=== PATIENT | male | born 1935 | race Asian ===

== ENCOUNTER 2017-08-29 15:10 | Inpatient (IN) | payer MEDICARE, MEDICAID ==
[~2017-08-29] VITALS: Ht 160 cm; Wt 65.8 kg
[~2017-08-29 15:10] MED LIST: APRODINE TABLE1 EACH PO; ASPIR 8181 MG ORAL; DIOVAN160 MG ORAL; FERROUS SULFAT325 MG ORAL; FOLIC ACID1 MG ORAL; LIPITOR10 MG ORAL; PROTONIX40 MG ORAL; RAPAFLO8 MG ORAL
--- NOTE | 2017-08-29 15:20 | Emergency Room Report ---
History of Present Illness General Chief Complaint: To Be Triaged Source: Patient Present Illness HPI 82-year-old male history of hypertension, COPD, history of stroke 10 years ago on aspirin and Plavix, presenting with left lower leg weakness for 2 days. Patient states the symptoms occurred gradually. And then yesterday today he has not able to walk secondary to leg weakness. Denies any headache, blurry vision, altered mental status, neck pain. No trauma. No fall. No back pain Allergies: Coded Allergies: NO KNOWN ALLERGIES (Unverified Allergy, Unknown, 05/08/15) Patient History Past Medical History: see triage record Past Surgical History: none Pertinent Family History: none Reviewed Nursing Documentation: PMH: Agreed, PSxH: Agreed Nursing Documentation-PMH Hx Cardiac Problems: Yes Hx Hypertension: Yes Hx Diabetes: Yes Hx Cancer: No Hx Gastrointestinal Problems: No Hx Neurological Problems: Yes Hx Cerebrovascular Accident: Yes - 2004 Review of Systems All Other Systems: negative except mentioned in HPI Physical Exam Sp02 EP Interpretation: reviewed, normal General Appearance: normal inspection, well appearing, no apparent distress, alert, GCS 15, non-toxic Head: normocephalic, atraumatic Eyes: bilateral eye normal inspection, bilateral eye PERRL, bilateral eye EOMI ENT: normal ENT inspection, normal pharynx, normal voice, moist mucus membranes Neck: normal inspection, full range of motion, supple Respiratory: normal inspection, lungs clear, normal breath sounds, no respiratory distress, no retraction, no wheezing, speaking full sentences, chest symmetrical Cardiovascular #1: normal inspection, regular rate, rhythm, no edema, normal capillary refill Cardiovascular #2: 2+ radial (R), 2+ radial (L) Gastrointestinal: normal inspection, non tender, soft, non-distended, no guarding Genitourinary: no CVA tenderness Musculoskeletal: normal inspection, back normal, normal range of motion, non- tender Neurologic: oriented x3, other - Left lower extremity with motor strength 3/5, all other extremities motor strength 5 out of 5. Sensory is intact. No pronator drift, finger to nose normal Psychiatric: normal inspection, judgement/insight normal, memory normal Skin: normal inspection, normal color, no rash, warm/dry, well hydrated, normal turgor Medical Decision Making Diagnostic Impression: Primary Impression: CVA (cerebral vascular accident) Additional Impressions: CKD (chronic kidney disease) Left leg weakness ER Course 82-year-old male with 2 days of left lower extremity weakness DDX: Stroke versus TIA versus intracranial bleed versus metabolic Plan: Obtain labs, ua, EKG, CXR CT head, Accu-Chek ER course: Patient has been monitored during ED stay, HD stable still w LLE weakness CT head neg will likely require MRI inpatient Disposition: Patient is to be admitted to telemetry D/W hospitalist Dr Liu Please note that this Emergency Department Report was dictated using [employer] room supervisor technology software, occasionally this can lead to erroneous entry secondary to interpretation by the dictation equipment. EKG Diagnostic Results EP Interpretation: Yes Rate: normal Rhythm: NSR ST Segments: No acute changes ASA given to patient: No Rhythm Strip EP Interpretation: Yes Rate: 84 Rhythm: NSR, no PVCs, no ectopy Chest X-ray CXR: Ordered: Yes 1 view Indication: Pain EP interpretation: Yes Interpretation: No consolidation, no effusion, no PTX, no acute cardiopulmonary disease Impression: No acute disease Electronically signed by Pedro Thomas MD Laboratory Tests Test 08/29/17 15:18 08/29/17 16:44 White Blood Count 7.7 K/UL (4.8-10.8) Red Blood Count 4.56 M/UL (4.70-6.10) L Hemoglobin 14.4 G/DL (14.2-18.0) Hematocrit 43.2 % (42.0-52.0) Mean Corpuscular Volume 95 FL (80-99) Mean Corpuscular Hemoglobin 31.5 PG (27.0-31.0) H Mean Corpuscular Hemoglobin Concent 33.3 G/DL (32.0-36.0) Red Cell Distribution Width 11.2 % (11.6-14.8) L Platelet Count 222 K/UL (150-450) Mean Platelet Volume 7.2 FL (6.5-10.1) Neutrophils (%) (Auto) 74.7 % (45.0-75.0) Lymphocytes (%) (Auto) 15.7 % (20.0-45.0) L Monocytes (%) (Auto) 6.5 % (1.0-10.0) Eosinophils (%) (Auto) 2.5 % (0.0-3.0) Basophils (%) (Auto) 0.7 % (0.0-2.0) Prothrombin Time 10.4 SEC (9.30-11.50) Prothrombin Time INR 1.0 (0.9-1.1) PTT 28 SEC (23-33) Sodium Level 143 MMOL/L (136-145) Potassium Level 3.6 MMOL/L (3.5-5.1) Chloride Level 106 MMOL/L (98-107) Carbon Dioxide Level 28 MMOL/L (21-32) Anion Gap 9 mmol/L (5-15) Blood Urea Nitrogen 29 mg/dL (7-18) H Creatinine 2.5 MG/DL (0.55-1.30) H Estimate Glomerular Filtration Rate mL/min (>60) Glucose Level 140 MG/DL (74-106) H Calcium Level 9.2 MG/DL (8.5-10.1) Total Bilirubin 0.4 MG/DL (0.2-1.0) Aspartate Amino Transferase (AST) 26 U/L (15-37) Alanine Aminotransferase (ALT) 13 U/L (12-78) Alkaline Phosphatase 59 U/L (46-116) Troponin I 0.013 ng/mL (0.000-0.056) Pro-B-Type Natriuretic Peptide 438 pg/mL (0-125) H Total Protein 7.1 G/DL (6.4-8.2) Albumin 3.6 G/DL (3.4-5.0) Globulin 3.5 g/dL Albumin/Globulin Ratio 1.0 (1.0-2.7) Urine Color Pending Urine Appearance Pending Urine pH Pending Urine Specific [place] Pending Urine Protein Pending Urine Glucose (UA) Pending Urine Ketones Pending Urine Occult Blood Pending Urine Nitrite Pending Urine Bilirubin Pending Urine Urobilinogen Pending Urine Leukocyte Esterase Pending CT/MRI/US Diagnostic Results CT/MRI/US Diagnostic Results : Imaging Test Ordered: CT Head Impression Impression: Chronic and age-related changes, as described Old bilateral lacunar infarcts, as described Negative for acute intracranial bleed or mass effect Sinus and mastoid disease Disposition: ADMITTED INPATIENT Condition: Pedro Coreas M.D. Aug 29, 2017 15:20
[2017-08-29 15:51] LABS: BASOPHILS % (AUTO) 0.7 % (0.0-2.0); EOSINOPHILS % (AUTO) 2.5 % (0.0-3.0); HEMATOCRIT 43.2 % (42.0-52.0); HEMOGLOBIN 14.4 G/DL (14.2-18.0); LYMPHOCYTES % (AUTO) 15.7 % (20.0-45.0); MEAN CORPUSCULAR VOLUME 95 FL (80-99); MONOCYTES % (AUTO) 6.5 % (1.0-10.0); NEUTROPHILS % (AUTO) 74.7 % (45.0-75.0); PLATELET COUNT 222 K/UL (150-450); RED BLOOD COUNT 4.56 M/UL (4.70-6.10); RED CELL DISTRIBUTION WIDTH 11.2 % (11.6-14.8); WHITE BLOOD COUNT 7.7 K/UL (4.8-10.8)
[2017-08-29 15:56] LABS: ANION GAP 9 mmol/L (5-15); BLOOD UREA NITROGEN 29 mg/dL (7-18); CALCIUM 9.2 MG/DL (8.5-10.1); CARBON DIOXIDE 28 MMOL/L (21-32); CHLORIDE 106 MMOL/L (98-107); CREATININE 2.5 MG/DL (0.55-1.30); POTASSIUM 3.6 MMOL/L (3.5-5.1); SODIUM 143 MMOL/L (136-145)
[2017-08-29 16:07] LABS: ALANINE AMINOTRANSFERASE 13 U/L (12-78); ALBUMIN 3.6 G/DL (3.4-5.0); ALKALINE PHOSPHATASE 59 U/L (46-116); ASPARTATE AMINO TRANSFERASE 26 U/L (15-37); BILIRUBIN,TOTAL 0.4 MG/DL (0.2-1.0)
--- NOTE | 2017-08-29 16:13 | Diagnostic Imaging Report ---
Indications: Syncope 3 times this morning, left leg numbness, history of stroke Technique: Spiral acquisitions obtained through the brain. Angled axial and coronal 5 x 5 mm slices were reconstructed. Total dose length product 1453.5 mGycm. CTDI vol(s) 70.38 mGy. Dose reduction achieved using automated exposure control Comparison: None. Findings: There is age-related enlargement of the ventricles and extra-axial CSF spaces. There is considerable periventricular deep white matter low-attenuation, compatible with chronic ischemic change. There is an old lacunar infarct extending from the genu of the right internal capsule into the bravo radiata on the right. Small lacunar infarct is also seen in the genu of the left internal capsule. Normal donahue-white differentiation otherwise. No acute intracranial hemorrhage or edema. No mass effect or midline shift. There is ethmoid sinus disease bilaterally. Visualized portions of the orbits appear unremarkable. 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 Impression: Chronic and age-related changes, as described Old bilateral lacunar infarcts, as described Negative for acute intracranial bleed or mass effect Sinus and mastoid disease The CT scanner at [facility] is accredited by the [place] [employer] and the scans are performed using protocols designed to limit radiation exposure to as low as reasonably achievable to attain images of sufficient resolution adequate for diagnostic evaluation.
--- NOTE | 2017-08-29 16:42 | Diagnostic Imaging Report ---
Indication: Chest pain Technique: One view of the chest Comparison: 10/08/2015 Findings: The lungs and pleural spaces are clear. The heart is borderline enlarged. The aorta is ectatic. There is minimal stable scarring of the left lateral lung base Impression: No acute process
[2017-08-29 17:12] LABS: APPEARANCE,URINE CLEAR; BILIRUBIN, URINE NEGATIVE (NEGATIVE); COLOR,URINE PALE YELLOW; GLUCOSE, URINE (UA) 1+ (NEGATIVE); KETONES,URINE NEGATIVE (NEGATIVE); LEUKOCYTE ESTERASE ,URINE NEGATIVE (NEGATIVE); NITRITE,URINE NEGATIVE (NEGATIVE); PH,URINE 6 (4.5-8.0); PROTEIN,URINE 2+ (NEGATIVE); UROBILINOGEN,URINE NORMAL MG/DL (0.0-1.0)
[2017-08-29] MEDS ORDERED: Mylanta II UD 30ml ORAL PRN (17:15)
[2017-08-29] MEDS ORDERED: Albuterol/Ipratropium 3ml neb HHN PRN (17:15)
[2017-08-29] MEDS ORDERED: LORazepam Inj 2mg/ml 1ml IV PRN (17:15)
[2017-08-29] MEDS ORDERED: Nitroglycerin Subl 0.4mg tab SL PRN (17:15)
[2017-08-29] MEDS ORDERED: Morphine Sulfate 2mg/ml Inj IVP PRN (17:15)
[2017-08-29 19:22] VITALS: BP 140/71
[2017-08-29] MEDS: NovoLOG Insulin Flexpen SUBQ SCH (21:00)
[2017-08-29] MEDS ORDERED: Miralax 17gm pkt ORAL PRN (21:00)
[2017-08-29] MEDS: Heparin 5000 units/ml inj SUBQ SCH (21:07)
[2017-08-29 21:45] VITALS: BP 150/90
[2017-08-29 21:58] LABS: APPEARANCE,URINE CLEAR; BILIRUBIN, URINE NEGATIVE (NEGATIVE); COLOR,URINE PALE YELLOW; GLUCOSE, URINE (UA) 1+ (NEGATIVE); KETONES,URINE NEGATIVE (NEGATIVE); LEUKOCYTE ESTERASE ,URINE NEGATIVE (NEGATIVE); NITRITE,URINE NEGATIVE (NEGATIVE); PH,URINE 6.5 (4.5-8.0); PROTEIN,URINE 2+ (NEGATIVE); UROBILINOGEN,URINE NORMAL MG/DL (0.0-1.0)
[2017-08-30] VITALS: BP 126/78
[2017-08-30 04:00] VITALS: BP 125/67
[2017-08-30] MEDS: NovoLOG Insulin Flexpen SUBQ SCH ×4 (06:30→20:42)
[2017-08-30 08:00] VITALS: BP 140/87
[2017-08-30 08:29] LABS: BASOPHILS % (AUTO) 0.9 % (0.0-2.0); EOSINOPHILS % (AUTO) 4.7 % (0.0-3.0); HEMATOCRIT 41.6 % (42.0-52.0); HEMOGLOBIN 14.1 G/DL (14.2-18.0); LYMPHOCYTES % (AUTO) 21.6 % (20.0-45.0); MEAN CORPUSCULAR VOLUME 94 FL (80-99); MONOCYTES % (AUTO) 7.3 % (1.0-10.0); NEUTROPHILS % (AUTO) 65.6 % (45.0-75.0); PLATELET COUNT 197 K/UL (150-450); RED BLOOD COUNT 4.41 M/UL (4.70-6.10); RED CELL DISTRIBUTION WIDTH 11.3 % (11.6-14.8); WHITE BLOOD COUNT 6.2 K/UL (4.8-10.8)
[2017-08-30 09:34] LABS: ALANINE AMINOTRANSFERASE 13 U/L (12-78); ALBUMIN 3.2 G/DL (3.4-5.0); ALKALINE PHOSPHATASE 45 U/L (46-116); ANION GAP 8 mmol/L (5-15); ASPARTATE AMINO TRANSFERASE 26 U/L (15-37); BILIRUBIN,TOTAL 0.6 MG/DL (0.2-1.0); BLOOD UREA NITROGEN 25 mg/dL (7-18); CALCIUM 8.9 MG/DL (8.5-10.1); CARBON DIOXIDE 25 MMOL/L (21-32); CHLORIDE 105 MMOL/L (98-107); CHOLESTEROL 121 MG/DL (< 200); CREATININE 2.3 MG/DL (0.55-1.30); HDL CHOLESTEROL 36 MG/DL (40-60); SODIUM 138 MMOL/L (136-145); TRIGLYCERIDES 76 MG/DL (30-150)
--- NOTE | 2017-08-30 09:46 | History and Physical ---
History of Present Illness General Date patient seen: Aug 30, 2017 Reason for Hospitalization: Stroke Symptoms Present Illness HPI 82-year-old male with PMHx of of hypertension, COPD, history of stroke 10 years ago on aspirin and Plavix, presenting with left lower leg weakness for 2 days. Patient states the symptoms occurred gradually. Today he has not able to walk secondary to leg weakness. Denies any headache, blurry vision, altered mental status, neck pain. No trauma. No fall. No back pain. Pt is admitted to telemetry for acute CVA. Allergies: Coded Allergies: NO KNOWN ALLERGIES (Unverified Allergy, Unknown, 05/08/15) Medication History Scheduled Atorvastatin Calcium* (Lipitor*), 10 MG ORAL BEDTIME, (Reported) Ferrous Sulfate* (Ferrous Sulfate*), 325 MG ORAL TWICE A DAY, (Reported) Folic Acid* (Folic Acid*), 1 MG ORAL DAILY, (Reported) P-Ephed Hcl/Triprolidine Hcl (Aprodine Tablet), 1 EACH PO THREE TIMES A DAY, ( Reported) Pantoprazole* (Protonix*), 40 MG ORAL DAILY, (Reported) Silodosin (Rapaflo), 8 MG ORAL DAILY, (Reported) Valsartan (Diovan), 160 MG ORAL DAILY, (Reported) Patient History Healthcare decision maker N Resuscitation status Full Code Advanced Directive on File Past Medical/Surgical History Past Medical/Surgical History: (1) CVA (cerebral vascular accident) (2) HTN (hypertension) Review of Systems All Other Systems: negative except mentioned in HPI Physical Exam General Appearance: WD/WN Lines, tubes and drains: peripheral HEENT: normocephalic, atraumatic Neck: non-tender, normal alignment Respiratory/Chest: chest wall non-tender, lungs clear Breasts: no masses Cardiovascular/Chest: normal peripheral pulses Abdomen: normal bowel sounds, non tender Genitourinary/Rectal: normal genital exam Extremities: normal range of motion Skin Exam: normal pigmentation Last 24 Hour Vital Signs Date Time Temp Pulse Resp B/P (MAP) Pulse Ox O2 Delivery O2 Flow Rate FiO2 08/30/17 04:00 97.7 84 20 125/67 95 Nasal Cannula 2.0 97.7 08/30/17 04:00 66 08/30/17 00:00 69 08/30/17 00:00 97.9 71 20 126/78 96 Nasal Cannula 2.0 97.9 08/29/17 21:45 98.2 69 22 150/90 98 Nasal Cannula 2.0 98.2 08/29/17 19:52 98.0 73 21 140/71 95 Simple Mask 2.0 98.0 08/29/17 19:22 98.0 73 21 140/71 95 Simple Mask 2.0 98.0 08/29/17 15:15 98.5 88 20 150/82 96 Room Air 98.4 Intake and Output 08/29/17 08/30/17 19:00 07:00 Intake Total 0 ml 0 ml Output Total 200 ml Balance 0 ml -200 ml Intake Oral 0 ml 0 ml Output Urine Total 200 ml # Voids 1 Laboratory Tests Test 08/29/17 15:18 08/29/17 16:44 08/29/17 21:20 08/30/17 07:20 White Blood Count 7.7 K/UL (4.8-10.8) 6.2 K/UL (4.8-10.8) Red Blood Count 4.56 M/UL (4.70-6.10) L 4.41 M/UL (4.70-6.10) L Hemoglobin 14.4 G/DL (14.2-18.0) 14.1 G/DL (14.2-18.0) L Hematocrit 43.2 % (42.0-52.0) 41.6 % (42.0-52.0) L Mean Corpuscular Volume 95 FL (80-99) 94 FL (80-99) Mean Corpuscular Hemoglobin 31.5 PG (27.0-31.0) H 32.0 PG (27.0-31.0) H Mean Corpuscular Hemoglobin Concent 33.3 G/DL (32.0-36.0) 33.9 G/DL (32.0-36.0) Red Cell Distribution Width 11.2 % (11.6-14.8) L 11.3 % (11.6-14.8) L Platelet Count 222 K/UL (150-450) 197 K/UL (150-450) Mean Platelet Volume 7.2 FL (6.5-10.1) 6.8 FL (6.5-10.1) Neutrophils (%) (Auto) 74.7 % (45.0-75.0) 65.6 % (45.0-75.0) Lymphocytes (%) (Auto) 15.7 % (20.0-45.0) L 21.6 % (20.0-45.0) Monocytes (%) (Auto) 6.5 % (1.0-10.0) 7.3 % (1.0-10.0) Eosinophils (%) (Auto) 2.5 % (0.0-3.0) 4.7 % (0.0-3.0) H Basophils (%) (Auto) 0.7 % (0.0-2.0) 0.9 % (0.0-2.0) Prothrombin Time 10.4 SEC (9.30-11.50) 10.7 SEC (9.30-11.50) Prothromb Time International Ratio 1.0 (0.9-1.1) 1.0 (0.9-1.1) Activated Partial Thromboplast Time 28 SEC (23-33) 31 SEC (23-33) Sodium Level 143 MMOL/L (136-145) 138 MMOL/L (136-145) Potassium Level 3.6 MMOL/L (3.5-5.1) 4.0 MMOL/L (3.5-5.1) Chloride Level 106 MMOL/L (98-107) 105 MMOL/L (98-107) Carbon Dioxide Level 28 MMOL/L (21-32) 25 MMOL/L (21-32) Anion Gap 9 mmol/L (5-15) 8 mmol/L (5-15) Blood Urea Nitrogen 29 mg/dL (7-18) H 25 mg/dL (7-18) H Creatinine 2.5 MG/DL (0.55-1.30) H 2.3 MG/DL (0.55-1.30) H Estimat Glomerular Filtration Rate mL/min (>60) mL/min (>60) Glucose Level 140 MG/DL (74-106) H 117 MG/DL (74-106) H Calcium Level 9.2 MG/DL (8.5-10.1) 8.9 MG/DL (8.5-10.1) Total Bilirubin 0.4 MG/DL (0.2-1.0) 0.6 MG/DL (0.2-1.0) Aspartate Amino Transf (AST/SGOT) 26 U/L (15-37) 26 U/L (15-37) Alanine Aminotransferase (ALT/SGPT) 13 U/L (12-78) 13 U/L (12-78) Alkaline Phosphatase 59 U/L (46-116) 45 U/L (46-116) L Troponin I 0.013 ng/mL (0.000-0.056) Pro-B-Type Natriuretic Peptide 438 pg/mL (0-125) H Total Protein 7.1 G/DL (6.4-8.2) 6.4 G/DL (6.4-8.2) Albumin 3.6 G/DL (3.4-5.0) 3.2 G/DL (3.4-5.0) L Globulin 3.5 g/dL 3.2 g/dL Albumin/Globulin Ratio 1.0 (1.0-2.7) 1.0 (1.0-2.7) Urine Color Pale yellow Pale yellow Urine Appearance Clear Clear Urine pH 6 (4.5-8.0) 6.5 (4.5-8.0) Urine Specific [place] 1.015 (1.005-1.035) 1.010 (1.005-1.035) Urine Protein 2+ (NEGATIVE) H 2+ (NEGATIVE) H Urine Glucose (UA) 1+ (NEGATIVE) H 1+ (NEGATIVE) H Urine Ketones Negative (NEGATIVE) Negative (NEGATIVE) Urine Occult Blood 1+ (NEGATIVE) H Negative (NEGATIVE) Urine Nitrite Negative (NEGATIVE) Negative (NEGATIVE) Urine Bilirubin Negative (NEGATIVE) Negative (NEGATIVE) Urine Urobilinogen Normal MG/DL (0.0-1.0) Normal MG/DL (0.0-1.0) Urine Leukocyte Esterase Negative (NEGATIVE) Negative (NEGATIVE) Urine RBC 2-4 /HPF (0 - 0) H 0-2 /HPF (0 - 0) H Urine WBC 0-2 /HPF (0 - 0) 0-2 /HPF (0 - 0) Urine Squamous Epithelial Cells None /LPF (NONE/OCC) None /LPF (NONE/OCC) Urine Bacteria Few /HPF (NONE) Few /HPF (NONE) Urine Eosinophils None seen Urine Random Sodium 173 mmol/L (20-110) H Urine Potassium Timed 22 mmol/L (12-62) Triglycerides Level 76 MG/DL (30-150) Cholesterol Level 121 MG/DL (< 200) LDL Cholesterol 77 mg/dL (<100) HDL Cholesterol 36 MG/DL (40-60) L Cholesterol/HDL Ratio 3.4 (3.3-4.4) Thyroid Stimulating Hormone (TSH) Pending Height (Feet): 5 Height (Inches): 3.00 Weight (Pounds): 145 Medications Current Medications Medications (Trade) Dose Ordered Sig/Pete Route PRN Reason Start Time Stop Time Status Last Admin Dose Admin Acetaminophen (Tylenol) 650 mg Q4H PRN ORAL T>100.5 08/29/17 17:15 09/28/17 17:14 Al Hydroxide/Mg Hydroxide (Mylanta II) 30 ml Q6H PRN ORAL dyspepsia 08/29/17 17:15 09/28/17 17:14 Albuterol/ Ipratropium (Albuterol/ Ipratropium) 3 ml Q4H PRN HHN Shortness of Breath 08/29/17 17:15 09/03/17 17:14 Atorvastatin Calcium (Lipitor) 10 mg BEDTIME ORAL 08/29/17 21:00 09/28/17 20:59 08/29/17 21:06 Clonidine HCl (Catapres Tab) 0.1 mg Q4H PRN ORAL SBP > 160mmHg 08/29/17 17:15 09/28/17 17:14 Dextrose (Dextrose 50%) STAT PRN IV Hypoglycemia 08/29/17 17:30 09/28/17 17:29 Heparin Sodium (Porcine) (Heparin 5000 units/ml) 5,000 units EVERY 12 HOURS SUBQ 08/29/17 21:00 09/28/17 20:59 08/29/17 21:07 Insulin Aspart (NovoLOG) BEFORE MEALS AND HS SUBQ 08/29/17 21:00 09/28/17 20:59 Lorazepam (Ativan 2mg/ml 1ml) 0.5 mg Q4H PRN IV For Anxiety 08/29/17 17:15 09/05/17 17:14 Morphine Sulfate (Morphine Sulfate) 1 mg Q4H PRN IVP Severe Pain (Pain Scale 7-10) 08/29/17 17:15 09/05/17 17:14 Nitroglycerin (Ntg) 0.4 mg Q5M X 3 DOSES PRN SL Prn Chest Pain 08/29/17 17:15 09/28/17 17:14 Ondansetron HCl (Zofran) 4 mg Q6H PRN IVP Nausea & Vomiting 08/29/17 17:15 09/28/17 17:14 Polyethylene Glycol (Miralax) 17 gm HSPRN PRN ORAL Constipation 08/29/17 21:00 09/28/17 20:59 Sodium Chloride 1,000 ml @ 75 mls/hr [id number] IV 08/29/17 18:30 09/28/17 18:29 08/29/17 21:06 Temazepam (Restoril) 15 mg HSPRN PRN ORAL Insomnia 08/29/17 21:00 09/05/17 20:59 Assessment/Plan Problem List: (1) Acute encephalopathy ICD Codes: G93.40 - Encephalopathy, unspecified SNOMED: 12687721, 763947284 (2) CVA (cerebral vascular accident) ICD Codes: I63.9 - Cerebral infarction, unspecified SNOMED: 252527458 (3) HTN (hypertension) ICD Codes: I10 - Essential (primary) hypertension SNOMED: 45208035 (4) CKD (chronic kidney disease) ICD Codes: N18.9 - Chronic kidney disease, unspecified SNOMED: 250582048 Assessment/Plan npo iv fluids swallow evaluation Neuro evaluation monitor BP symptomatic treatment DANK SANCHEZ Aug 30, 2017 09:46
[2017-08-30] MEDS: Heparin 5000 units/ml inj SUBQ SCH ×2 (10:32→20:42)
[2017-08-30 12:00] VITALS: BP 144/72
--- NOTE | 2017-08-30 12:51 | Neurology Progress Note ---
Objective Physical Exam Last Vital Signs Date Time Temp Pulse Resp B/P (MAP) Pulse Ox O2 Delivery O2 Flow Rate FiO2 08/30/17 04:00 97.7 84 20 125/67 95 Nasal Cannula 2.0 97.7 Laboratory Tests Test 08/29/17 15:18 08/29/17 16:44 08/29/17 21:20 08/30/17 07:20 White Blood Count 7.7 K/UL (4.8-10.8) 6.2 K/UL (4.8-10.8) Red Blood Count 4.56 M/UL (4.70-6.10) L 4.41 M/UL (4.70-6.10) L Hemoglobin 14.4 G/DL (14.2-18.0) 14.1 G/DL (14.2-18.0) L Hematocrit 43.2 % (42.0-52.0) 41.6 % (42.0-52.0) L Mean Corpuscular Volume 95 FL (80-99) 94 FL (80-99) Mean Corpuscular Hemoglobin 31.5 PG (27.0-31.0) H 32.0 PG (27.0-31.0) H Mean Corpuscular Hemoglobin Concent 33.3 G/DL (32.0-36.0) 33.9 G/DL (32.0-36.0) Red Cell Distribution Width 11.2 % (11.6-14.8) L 11.3 % (11.6-14.8) L Platelet Count 222 K/UL (150-450) 197 K/UL (150-450) Mean Platelet Volume 7.2 FL (6.5-10.1) 6.8 FL (6.5-10.1) Neutrophils (%) (Auto) 74.7 % (45.0-75.0) 65.6 % (45.0-75.0) Lymphocytes (%) (Auto) 15.7 % (20.0-45.0) L 21.6 % (20.0-45.0) Monocytes (%) (Auto) 6.5 % (1.0-10.0) 7.3 % (1.0-10.0) Eosinophils (%) (Auto) 2.5 % (0.0-3.0) 4.7 % (0.0-3.0) H Basophils (%) (Auto) 0.7 % (0.0-2.0) 0.9 % (0.0-2.0) Prothrombin Time 10.4 SEC (9.30-11.50) 10.7 SEC (9.30-11.50) Prothromb Time International Ratio 1.0 (0.9-1.1) 1.0 (0.9-1.1) Activated Partial Thromboplast Time 28 SEC (23-33) 31 SEC (23-33) Sodium Level 143 MMOL/L (136-145) 138 MMOL/L (136-145) Potassium Level 3.6 MMOL/L (3.5-5.1) 4.0 MMOL/L (3.5-5.1) Chloride Level 106 MMOL/L (98-107) 105 MMOL/L (98-107) Carbon Dioxide Level 28 MMOL/L (21-32) 25 MMOL/L (21-32) Anion Gap 9 mmol/L (5-15) 8 mmol/L (5-15) Blood Urea Nitrogen 29 mg/dL (7-18) H 25 mg/dL (7-18) H Creatinine 2.5 MG/DL (0.55-1.30) H 2.3 MG/DL (0.55-1.30) H Estimat Glomerular Filtration Rate mL/min (>60) mL/min (>60) Glucose Level 140 MG/DL (74-106) H 117 MG/DL (74-106) H Calcium Level 9.2 MG/DL (8.5-10.1) 8.9 MG/DL (8.5-10.1) Total Bilirubin 0.4 MG/DL (0.2-1.0) 0.6 MG/DL (0.2-1.0) Aspartate Amino Transf (AST/SGOT) 26 U/L (15-37) 26 U/L (15-37) Alanine Aminotransferase (ALT/SGPT) 13 U/L (12-78) 13 U/L (12-78) Alkaline Phosphatase 59 U/L (46-116) 45 U/L (46-116) L Troponin I 0.013 ng/mL (0.000-0.056) Pro-B-Type Natriuretic Peptide 438 pg/mL (0-125) H Total Protein 7.1 G/DL (6.4-8.2) 6.4 G/DL (6.4-8.2) Albumin 3.6 G/DL (3.4-5.0) 3.2 G/DL (3.4-5.0) L Globulin 3.5 g/dL 3.2 g/dL Albumin/Globulin Ratio 1.0 (1.0-2.7) 1.0 (1.0-2.7) Urine Color Pale yellow Pale yellow Urine Appearance Clear Clear Urine pH 6 (4.5-8.0) 6.5 (4.5-8.0) Urine Specific [place] 1.015 (1.005-1.035) 1.010 (1.005-1.035) Urine Protein 2+ (NEGATIVE) H 2+ (NEGATIVE) H Urine Glucose (UA) 1+ (NEGATIVE) H 1+ (NEGATIVE) H Urine Ketones Negative (NEGATIVE) Negative (NEGATIVE) Urine Occult Blood 1+ (NEGATIVE) H Negative (NEGATIVE) Urine Nitrite Negative (NEGATIVE) Negative (NEGATIVE) Urine Bilirubin Negative (NEGATIVE) Negative (NEGATIVE) Urine Urobilinogen Normal MG/DL (0.0-1.0) Normal MG/DL (0.0-1.0) Urine Leukocyte Esterase Negative (NEGATIVE) Negative (NEGATIVE) Urine RBC 2-4 /HPF (0 - 0) H 0-2 /HPF (0 - 0) H Urine WBC 0-2 /HPF (0 - 0) 0-2 /HPF (0 - 0) Urine Squamous Epithelial Cells None /LPF (NONE/OCC) None /LPF (NONE/OCC) Urine Bacteria Few /HPF (NONE) Few /HPF (NONE) Urine Eosinophils None seen Urine Random Sodium 173 mmol/L (20-110) H Urine Potassium Timed 22 mmol/L (12-62) Triglycerides Level 76 MG/DL (30-150) Cholesterol Level 121 MG/DL (< 200) LDL Cholesterol 77 mg/dL (<100) HDL Cholesterol 36 MG/DL (40-60) L Cholesterol/HDL Ratio 3.4 (3.3-4.4) Thyroid Stimulating Hormone (TSH) 0.696 uiU/mL (0.358-3.740) Impression/Recommendations Recommendations #[id number] BERNADETTE JORDAN Aug 30, 2017 12:51
--- NOTE | 2017-08-30 12:57 | Cardiology Progress Note ---
Assessment/Plan Assessment/Plan s/p fall no loc cva hs orthostic vital echo romana home if abo ve neg [id number] Objective Last 24 Hour Vital Signs Date Time Temp Pulse Resp B/P (MAP) Pulse Ox O2 Delivery O2 Flow Rate FiO2 08/30/17 04:00 97.7 84 20 125/67 95 Nasal Cannula 2.0 97.7 08/30/17 04:00 66 08/30/17 00:00 69 08/30/17 00:00 97.9 71 20 126/78 96 Nasal Cannula 2.0 97.9 08/29/17 21:45 98.2 69 22 150/90 98 Nasal Cannula 2.0 98.2 08/29/17 19:52 98.0 73 21 140/71 95 Simple Mask 2.0 98.0 08/29/17 19:22 98.0 73 21 140/71 95 Simple Mask 2.0 98.0 08/29/17 15:15 98.5 88 20 150/82 96 Room Air 98.4 Intake and Output 08/29/17 08/30/17 19:00 07:00 Intake Total 0 ml 0 ml Output Total 200 ml Balance 0 ml -200 ml Intake Oral 0 ml 0 ml Output Urine Total 200 ml # Voids 1 Laboratory Tests Test 08/29/17 15:18 08/29/17 16:44 08/29/17 21:20 08/30/17 07:20 White Blood Count 7.7 K/UL (4.8-10.8) 6.2 K/UL (4.8-10.8) Red Blood Count 4.56 M/UL (4.70-6.10) L 4.41 M/UL (4.70-6.10) L Hemoglobin 14.4 G/DL (14.2-18.0) 14.1 G/DL (14.2-18.0) L Hematocrit 43.2 % (42.0-52.0) 41.6 % (42.0-52.0) L Mean Corpuscular Volume 95 FL (80-99) 94 FL (80-99) Mean Corpuscular Hemoglobin 31.5 PG (27.0-31.0) H 32.0 PG (27.0-31.0) H Mean Corpuscular Hemoglobin Concent 33.3 G/DL (32.0-36.0) 33.9 G/DL (32.0-36.0) Red Cell Distribution Width 11.2 % (11.6-14.8) L 11.3 % (11.6-14.8) L Platelet Count 222 K/UL (150-450) 197 K/UL (150-450) Mean Platelet Volume 7.2 FL (6.5-10.1) 6.8 FL (6.5-10.1) Neutrophils (%) (Auto) 74.7 % (45.0-75.0) 65.6 % (45.0-75.0) Lymphocytes (%) (Auto) 15.7 % (20.0-45.0) L 21.6 % (20.0-45.0) Monocytes (%) (Auto) 6.5 % (1.0-10.0) 7.3 % (1.0-10.0) Eosinophils (%) (Auto) 2.5 % (0.0-3.0) 4.7 % (0.0-3.0) H Basophils (%) (Auto) 0.7 % (0.0-2.0) 0.9 % (0.0-2.0) Prothrombin Time 10.4 SEC (9.30-11.50) 10.7 SEC (9.30-11.50) Prothromb Time International Ratio 1.0 (0.9-1.1) 1.0 (0.9-1.1) Activated Partial Thromboplast Time 28 SEC (23-33) 31 SEC (23-33) Sodium Level 143 MMOL/L (136-145) 138 MMOL/L (136-145) Potassium Level 3.6 MMOL/L (3.5-5.1) 4.0 MMOL/L (3.5-5.1) Chloride Level 106 MMOL/L (98-107) 105 MMOL/L (98-107) Carbon Dioxide Level 28 MMOL/L (21-32) 25 MMOL/L (21-32) Anion Gap 9 mmol/L (5-15) 8 mmol/L (5-15) Blood Urea Nitrogen 29 mg/dL (7-18) H 25 mg/dL (7-18) H Creatinine 2.5 MG/DL (0.55-1.30) H 2.3 MG/DL (0.55-1.30) H Estimat Glomerular Filtration Rate mL/min (>60) mL/min (>60) Glucose Level 140 MG/DL (74-106) H 117 MG/DL (74-106) H Calcium Level 9.2 MG/DL (8.5-10.1) 8.9 MG/DL (8.5-10.1) Total Bilirubin 0.4 MG/DL (0.2-1.0) 0.6 MG/DL (0.2-1.0) Aspartate Amino Transf (AST/SGOT) 26 U/L (15-37) 26 U/L (15-37) Alanine Aminotransferase (ALT/SGPT) 13 U/L (12-78) 13 U/L (12-78) Alkaline Phosphatase 59 U/L (46-116) 45 U/L (46-116) L Troponin I 0.013 ng/mL (0.000-0.056) Pro-B-Type Natriuretic Peptide 438 pg/mL (0-125) H Total Protein 7.1 G/DL (6.4-8.2) 6.4 G/DL (6.4-8.2) Albumin 3.6 G/DL (3.4-5.0) 3.2 G/DL (3.4-5.0) L Globulin 3.5 g/dL 3.2 g/dL Albumin/Globulin Ratio 1.0 (1.0-2.7) 1.0 (1.0-2.7) Urine Color Pale yellow Pale yellow Urine Appearance Clear Clear Urine pH 6 (4.5-8.0) 6.5 (4.5-8.0) Urine Specific [place] 1.015 (1.005-1.035) 1.010 (1.005-1.035) Urine Protein 2+ (NEGATIVE) H 2+ (NEGATIVE) H Urine Glucose (UA) 1+ (NEGATIVE) H 1+ (NEGATIVE) H Urine Ketones Negative (NEGATIVE) Negative (NEGATIVE) Urine Occult Blood 1+ (NEGATIVE) H Negative (NEGATIVE) Urine Nitrite Negative (NEGATIVE) Negative (NEGATIVE) Urine Bilirubin Negative (NEGATIVE) Negative (NEGATIVE) Urine Urobilinogen Normal MG/DL (0.0-1.0) Normal MG/DL (0.0-1.0) Urine Leukocyte Esterase Negative (NEGATIVE) Negative (NEGATIVE) Urine RBC 2-4 /HPF (0 - 0) H 0-2 /HPF (0 - 0) H Urine WBC 0-2 /HPF (0 - 0) 0-2 /HPF (0 - 0) Urine Squamous Epithelial Cells None /LPF (NONE/OCC) None /LPF (NONE/OCC) Urine Bacteria Few /HPF (NONE) Few /HPF (NONE) Urine Eosinophils None seen Urine Random Sodium 173 mmol/L (20-110) H Urine Potassium Timed 22 mmol/L (12-62) Triglycerides Level 76 MG/DL (30-150) Cholesterol Level 121 MG/DL (< 200) LDL Cholesterol 77 mg/dL (<100) HDL Cholesterol 36 MG/DL (40-60) L Cholesterol/HDL Ratio 3.4 (3.3-4.4) Thyroid Stimulating Hormone (TSH) 0.696 uiU/mL (0.358-3.740) SUSAN FUNG Aug 30, 2017 12:56
--- NOTE | 2017-08-30 13:02 | Diagnostic Imaging Report ---
Indication:Elevated Bun and Creatinine. Technique: Grayscale and duplex Doppler imaging of the kidneys performed. Comparison: None Findings: The kidneys demonstrate increased echogenicity of the cortex which appears atrophic. The right kidney is 10.4 cm and the left is 11 cm. There are multiple cysts present bilaterally. Urinary bladder is mildly distended. The prostate gland is prominent in size and measures approximately 40 cc. There is no hydronephrosis. 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 IMPRESSION: Medical renal disease. Prostate hypertrophy. 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
[2017-08-30] MEDS: Aspirin Baby 81mg ORAL SCH (13:52)
[2017-08-30 15:59] VITALS: BP 134/70
--- NOTE | 2017-08-30 16:09 | Cardiology Report ---
APPROVED REPORT EXAM: Two-dimensional and M-mode echocardiogram with Doppler and color Doppler. INDICATION Left ventricular function M-Mode DIMENSIONS IVSd0.9 (0.7-1.1cm)Left Atrium (MM)3.7 (1.6-4.0cm) LVDd5.7 (3.5-5.6cm)Aortic Root3.7 (2.0-3.7cm) PWd1.2 (0.7-1.1cm)Aortic Cusp Exc.1.9 (1.5-2.0cm) LVDs3.3 (2.5-4.0cm) PWs1.4 cm Normal left ventricular chamber size, systolic function and wall motion excpet mild hypokinesis of the distal apical septum only Left ventricular ejection fraction estimated to be 55-60%. No evidence of left ventricular hypertrophy. Small posterior pericardial effusion. All other cardiac chamber sizes are within normal limits. Focal aortic valve sclerosis with adequate cusp excursion. Normal mitral valve leaflets with normal excursion. Mild mitral annulus and aortic root calcification. Pulmonic valve not well visualized. Normal tricuspid valve structure. IVC is normal in size and collapsible with respiration. A color flow and spectral Doppler study was performed and revealed: No aortic regurgitation. No mitral regurgitation. Mitral diastolic velocities suggest reduced left ventricular relaxation c/w diastolic dysfunction grade 1. No tricuspid regurgitation. Pulmonic regurgitation present.
--- NOTE | 2017-08-30 16:29 | Cardiology Report ---
APPROVED REPORT EKG Measurement Heart [id number] Normal sinus rhythm Cannot rule out Anterior infarct, age undetermined Abnormal ECG
--- NOTE | 2017-08-30 17:24 | Consultation ---
Consult Note Consult Note asked to evaluate at the request of Dr Liu for renal failure- 82-year-old male history of hypertension, COPD, history of stroke 10 years ago on aspirin and Plavix, presenting with left lower leg weakness for 2 days. Patient states the symptoms occurred gradually. And then yesterday today he has not able to walk secondary to leg weakness. Denies any headache, blurry vision, altered mental status, neck pain. No trauma. No fall. No back pain Hx Cardiac Problems: Yes Hx Hypertension: Yes Hx Diabetes: Yes Hx Neurological Problems: Yes Hx Cerebrovascular Accident: Yes - 2004 patient examined data reviewed discussed with RN . Assessment/Plan (1) Acute encephalopathy (2) CVA (cerebral vascular accident) (3) HTN (hypertension) (4) CKD (chronic kidney disease), proteinuria (5) BPH DIMITRI: Medical renal disease. Prostate hypertrophy. 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
[2017-08-30] MEDS ORDERED: Tamsulosin 0.4mg cap ORAL ONE (18:00)
[2017-08-30 20:00] VITALS: BP 157/86
--- NOTE | 2017-08-30 21:00 | Consultation ---
DATE OF CONSULTATION: 08/30/2017 NEUROLOGIC CONSULTATION CONSULTING PHYSICIAN: Russell Salinas M.D. REQUESTING PHYSICIAN: Ronda Liu M.D. HISTORY OF PRESENT ILLNESS: The patient is an 82-year-old man seen in neurological consultation to evaluate a new onset of unexpected fall. According to the patient, he was doing fairly well, woke up in the morning, and as he tried to get up, he lost balance and fell down. He is not sure if he had loss of consciousness. He had difficulty to ambulate and was brought to this facility. On admission though, he was indicating presence of left lower extremity weakness for couple of days. This developed apparently gradually and as a result, he developed difficulty ambulation. His vital signs on admission were stable. Blood pressure 140/71. Imaging studies were obtained including CAT scan of the brain. This revealed chronic age-related changes, considerable periventricular deep white matter chronic ischemic changes, old lacunar infarct in the right internal capsule, and small lacunar infarct in the left internal capsule. There was also ethmoid sinuses and the mastoid disease bilaterally, combination of acute on chronic. There was no acute abnormalities. Chest x-ray, no acute process noted. Lab work included normal CBC, coagulation panel, and unremarkable urinalysis except urine protein of 2+. Chemistry panel with BUN of 29, creatinine 2.5, blood sugar 140, and BNP of 448. Normal TSH. Unremarkable lipid panel. Following admission till present, there was no further paroxysmal event, but examination revealed decreased strength 3/5 in the left lower extremity. PAST MEDICAL HISTORY: The patient has extensive medical history. This includes multiple strokes, chronic renal insufficiency, history of GI bleed, diabetes type 2, hypertension, and chronic anemia. MEDICATIONS: Treatment prior to admission included atorvastatin, pantoprazole, Rapaflo, Diovan, and folate. ALLERGIES: None reported. FAMILY HISTORY: Noncontributory. SOCIAL HISTORY: The patient lives with his . REVIEW OF SYMPTOMS: At this time, the patient is feeling well. He states that he is feeling much stronger than on admission. No headache. No dizziness. No chest pain. No palpitations. No respiratory problems. No abdominal pain or discomfort. No urine or bowel incontinence. PHYSICAL EXAMINATION: GENERAL: This is a well-developed and well-nourished man, lying in bed, having his lunch. VITAL SIGNS: Now are stable. Blood pressure 125/70 and temperature 97.7. HEENT: Head, normocephalic. No evidence of trauma. Eyes, ears, and throat are clear. NECK: Supple. No meningeal signs. MUSCULOSKELETAL EXAMINATION: Unremarkable. There is no deformities. Peripheral pulses 1+ and symmetric. MENTAL STATUS: Alert and oriented x3 with no evidence of aphasia or apraxia. Somewhat forgetful on the recent events. CRANIAL NERVE II: Pupils both responding to light and accommodation. Extraocular movement intact. No nystagmus. CRANIAL NERVE V: Normal corneal responses. CRANIAL NERVE VII: No facial asymmetry. CRANIAL NERVE VIII: Normal hearing. CRANIAL NERVES IX THROUGH XII: Within normal limits. Normal swallowing. MOTOR EXAMINATION: Able to lift arms and legs against the gravity. Strength 5/5. Deep tendon reflexes 2+ bilaterally. Plantar response is mute. SENSORY EXAMINATION: Withdrawing to pin stimulation in both upper and lower extremities. Gait slow, but stable. IMPRESSION: 1. Transient left lower extremity weakness probably transient ischemic attack. 2. Extensive ischemic cerebrovascular disease with multiple lacunar strokes. 3. Hypertension. 4. Hyperlipidemia. 5. Chronic obstructive pulmonary disease. 6. Chronic renal insufficiency. RECOMMENDATION: The patient to start on aspirin 81 mg daily. Continue with Lipitor. Recheck carotid duplex study. Check echocardiogram. Continue cardiac monitoring. Check orthostatic blood pressure. Thank you for allowing me to see this interesting patient in neurological consultation. Russell Salinas M.D. DR: GENESIS JOB#: [id number] CC:
--- NOTE | 2017-08-30 21:15 | Consultation ---
DATE OF CONSULTATION: 08/30/2017 CARDIOLOGY CONSULTATION CONSULTING PHYSICIAN: Monster Bellamy M.D. REFERRING PHYSICIAN: Ronda Liu M.D. REASON FOR REFERRAL: Possible syncope. HISTORY OF PRESENT ILLNESS: This is an elderly gentleman with history of multiple medical problems. Information today was obtained from him directly but with the help of one of the staff here who speaks Luxembourgish. He tells me that apparently the patient trying to get out of bed yesterday and lost balance and fell. He actually apparently did not lose consciousness. He apparently remembered the actual fall itself. Denies any chest pain, pressure, or tightness. No PND. No orthopnea. No palpitation. Except for yesterday when he stand up he usually does not have any dizziness or lightheadedness. PAST MEDICAL HISTORY: His past medical history as obtained from the patient is positive for high blood pressure. He denies any heart attack, cancer, stroke, hepatitis, tuberculosis, asthma, emphysema. 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 ALLERGIES: He denies any allergies to medications. SOCIAL HISTORY: He lives at home with his . He is active. He walks he says. He does not have to stop because of chest pains or shortness of breath. He does not have any smoking, alcohol use, or drug use history. REVIEW OF SYSTEMS: GASTROINTESTINAL: He denies any nausea, vomiting, diarrhea, or constipation. No bloody or black stool. GENITOURINARY: Negative. PULMONARY: Negative. CONSTITUTIONAL: He has occasional chills. NEUROLOGICAL: Negative. PHYSICAL EXAMINATION: GENERAL: Shows to be elderly gentleman, in no respiratory distress. HEENT: Unremarkable. NECK: Supple. No jugular venous distention. No abdominojugular reflux noted. LUNGS: Appear to be clear to auscultation and percussion. CARDIAC: Regular rate and rhythm. ABDOMEN: Soft and nontender. Positive bowel sounds. EXTREMITIES: There is no clubbing, cyanosis, nor is there any edema. NEUROLOGICAL: He is awake, alert, responsive, in no apparent respiratory distress. LABORATORY AND DIAGNOSTIC DATA: White count 6.3, hemoglobin 14.1, platelet count 197. Sodium is 138, potassium 4.0, chloride 105, bicarb 25, BUN 25, creatinine 2.3, and glucose of 116. His creatinine back in 2016 was 1.8. His liver function tests are normal. Troponin first set 0.013. Albumin of 3.1, HDL of 36, LDL of 77. TSH is 0.696. INR is 1.0 and PTT of 31. His urinalysis appears to be relatively clear. IMAGING: He had x-ray of his chest that showed no acute processes and he did have a CT scan of his head that shows chronic age-related changes, old bilateral lacunar infarction, negative for acute intracranial bleeds. His electrocardiogram shows normal sinus rhythm, normal QRS axis, no ST or T-wave abnormalities. Telemetry data overnight has shown basically just sinus rhythm, rate 70. There is no SVT pauses of significant degree. ASSESSMENT AND PLAN: 1. Fall likely nonsyncopal. 2. History of cerebrovascular accident. 3. Diabetes mellitus. 4. History of hypertension. 5. History of pancreatic and gallbladder issues. Dr. Liu this patient was seen in cardiac consultation. The patient's blood pressure at this time 125/67, heart rate of 84, temperature 97.7. He has no symptoms to suggest syncope. He did walk around to the bathroom without any problems. He will have limited workup for syncope however an echocardiogram, orthostatic vitals, and repeat cardiac enzymes and hopefully he can be discharged home relatively soon. Monster Bellamy M.D. DR: Adela JOB#: [id number] CC:
--- NOTE | 2017-08-30 22:43 | Consultation ---
History of Present Illness General Date patient seen: Aug 30, 2017 Chief Complaint: Stroke Symptoms Present Illness HPI 82 yo man with history of multiple medical problems. who speaks Slovenian. the patient trying to get out of bed yesterday and lost balance and fell. the pt pw depressed mood low energy and anhedonia; as well as cognitive impairment Allergies: Coded Allergies: NO KNOWN ALLERGIES (Unverified Allergy, Unknown, 05/08/15) Medication History Scheduled Atorvastatin Calcium* (Lipitor*), 10 MG ORAL BEDTIME, (Reported) Ferrous Sulfate* (Ferrous Sulfate*), 325 MG ORAL TWICE A DAY, (Reported) Folic Acid* (Folic Acid*), 1 MG ORAL DAILY, (Reported) P-Ephed Hcl/Triprolidine Hcl (Aprodine Tablet), 1 EACH PO THREE TIMES A DAY, ( Reported) Pantoprazole* (Protonix*), 40 MG ORAL DAILY, (Reported) Silodosin (Rapaflo), 8 MG ORAL DAILY, (Reported) Valsartan (Diovan), 160 MG ORAL DAILY, (Reported) Patient History Limited by: medical condition History Provided By: Patient, Medical Record, PMD Healthcare decision maker N Resuscitation status Full Code Advanced Directive on File Past Medical/Surgical History Past Medical/Surgical History: (1) Episode of generalized weakness (2) Melena (3) Pancreatitis (4) [id number] kidney injury (5) GI bleed (6) Anemia (7) Common bile duct dilatation (8) Diabetes mellitus (9) Abdominal pain (10) Atelectasis (11) Sepsis (12) Biliary obstruction (13) Cholangitis (14) ATN (acute tubular necrosis) (15) Anemia associated with acute blood loss (16) Left leg weakness (17) CVA (cerebral vascular accident) (18) CKD (chronic kidney disease) (19) HTN (hypertension) (20) Acute encephalopathy Review of Systems Psychiatric: Reports: prior hx, anxiety, depressed feelings, emotional problems Physical Exam General Appearance: no apparent distress, alert Neurologic: alert, oriented x 3, responsive, depressed affect Last 24 Hour Vital Signs Date Time Temp Pulse Resp B/P (MAP) Pulse Ox O2 Delivery O2 Flow Rate FiO2 08/30/17 20:00 75 08/30/17 20:00 98.2 67 20 157/86 96 Room Air 98.2 08/30/17 15:59 97.4 67 16 134/70 96 Room Air 97.4 08/30/17 15:50 72 08/30/17 12:00 97.3 81 18 144/72 99 97.3 08/30/17 11:41 74 08/30/17 08:00 74 08/30/17 08:00 98.1 74 18 140/87 96 Nasal Cannula 2.0 98.1 08/30/17 04:00 97.7 84 20 125/67 95 Nasal Cannula 2.0 97.7 08/30/17 04:00 66 08/30/17 00:00 69 08/30/17 00:00 97.9 71 20 126/78 96 Nasal Cannula 2.0 97.9 Intake and Output 08/29/17 08/30/17 19:00 07:00 Intake Total 0 ml 675 ml Output Total 200 ml Balance 0 ml 475 ml Intake Oral 0 ml 0 ml IV Total 675 ml Output Urine Total 200 ml # Voids 1 Laboratory Tests Test 08/30/17 07:20 White Blood Count 6.2 K/UL (4.8-10.8) Red Blood Count 4.41 M/UL (4.70-6.10) L Hemoglobin 14.1 G/DL (14.2-18.0) L Hematocrit 41.6 % (42.0-52.0) L Mean Corpuscular Volume 94 FL (80-99) Mean Corpuscular Hemoglobin 32.0 PG (27.0-31.0) H Mean Corpuscular Hemoglobin Concent 33.9 G/DL (32.0-36.0) Red Cell Distribution Width 11.3 % (11.6-14.8) L Platelet Count 197 K/UL (150-450) Mean Platelet Volume 6.8 FL (6.5-10.1) Neutrophils (%) (Auto) 65.6 % (45.0-75.0) Lymphocytes (%) (Auto) 21.6 % (20.0-45.0) Monocytes (%) (Auto) 7.3 % (1.0-10.0) Eosinophils (%) (Auto) 4.7 % (0.0-3.0) H Basophils (%) (Auto) 0.9 % (0.0-2.0) Prothrombin Time 10.7 SEC (9.30-11.50) Prothromb Time International Ratio 1.0 (0.9-1.1) Activated Partial Thromboplast Time 31 SEC (23-33) Sodium Level 138 MMOL/L (136-145) Potassium Level 4.0 MMOL/L (3.5-5.1) Chloride Level 105 MMOL/L (98-107) Carbon Dioxide Level 25 MMOL/L (21-32) Anion Gap 8 mmol/L (5-15) Blood Urea Nitrogen 25 mg/dL (7-18) H Creatinine 2.3 MG/DL (0.55-1.30) H Estimat Glomerular Filtration Rate mL/min (>60) Glucose Level 117 MG/DL (74-106) H Calcium Level 8.9 MG/DL (8.5-10.1) Total Bilirubin 0.6 MG/DL (0.2-1.0) Aspartate Amino Transf (AST/SGOT) 26 U/L (15-37) Alanine Aminotransferase (ALT/SGPT) 13 U/L (12-78) Alkaline Phosphatase 45 U/L (46-116) L C-Reactive Protein, Quantitative 0.6 mg/dL (0.00-0.90) Total Protein 6.4 G/DL (6.4-8.2) Albumin 3.2 G/DL (3.4-5.0) L Globulin 3.2 g/dL Albumin/Globulin Ratio 1.0 (1.0-2.7) Triglycerides Level 76 MG/DL (30-150) Cholesterol Level 121 MG/DL (< 200) LDL Cholesterol 77 mg/dL (<100) HDL Cholesterol 36 MG/DL (40-60) L Cholesterol/HDL Ratio 3.4 (3.3-4.4) Thyroid Stimulating Hormone (TSH) 0.696 uiU/mL (0.358-3.740) Height (Feet): 5 Height (Inches): 3.00 Weight (Pounds): 145 Medications Current Medications Medications (Trade) Dose Ordered Sig/Pete Route PRN Reason Start Time Stop Time Status Last Admin Dose Admin Acetaminophen (Tylenol) 650 mg Q4H PRN ORAL T>100.5 08/29/17 17:15 09/28/17 17:14 Albuterol/ Ipratropium (Albuterol/ Ipratropium) 3 ml Q4H PRN HHN Shortness of Breath 08/29/17 17:15 09/03/17 17:14 Aspirin (ASA) 81 mg DAILY ORAL 08/30/17 13:30 09/29/17 13:29 08/30/17 13:52 Atorvastatin Calcium (Lipitor) 10 mg BEDTIME ORAL 08/29/17 21:00 09/28/17 20:59 08/30/17 20:41 Clonidine HCl (Catapres Tab) 0.1 mg Q4H PRN ORAL SBP > 160mmHg 08/29/17 17:15 09/28/17 17:14 Dextrose (Dextrose 50%) STAT PRN IV Hypoglycemia 08/29/17 17:30 09/28/17 17:29 Heparin Sodium (Porcine) (Heparin 5000 units/ml) 5,000 units EVERY 12 HOURS SUBQ 08/29/17 21:00 09/28/17 20:59 08/30/17 20:42 Insulin Aspart (NovoLOG) BEFORE MEALS AND HS SUBQ 08/29/17 21:00 09/28/17 20:59 Lorazepam (Ativan 2mg/ml 1ml) 0.5 mg Q4H PRN IV For Anxiety 08/29/17 17:15 09/05/17 17:14 Morphine Sulfate (Morphine Sulfate) 1 mg Q4H PRN IVP Severe Pain (Pain Scale 7-10) 08/29/17 17:15 09/05/17 17:14 Nitroglycerin (Ntg) 0.4 mg Q5M X 3 DOSES PRN SL Prn Chest Pain 08/29/17 17:15 09/28/17 17:14 Ondansetron HCl (Zofran) 4 mg Q6H PRN IVP Nausea & Vomiting 08/29/17 17:15 09/28/17 17:14 Polyethylene Glycol (Miralax) 17 gm HSPRN PRN ORAL Constipation 08/29/17 21:00 09/28/17 20:59 Sodium Chloride 1,000 ml @ 75 mls/hr [id number] IV 08/29/17 18:30 09/28/17 18:29 08/30/17 20:43 Tamsulosin HCl (Flomax) 0.4 mg BEDTIME ORAL 08/30/17 23:00 09/29/17 22:59 Temazepam (Restoril) 15 mg HSPRN PRN ORAL Insomnia 08/29/17 21:00 09/05/17 20:59 Assessment/Plan Status: stable Assessment/Plan depressive d/o stroke lexapro 5mg Soha Turcios M.D. Aug 30, 2017 22:43
[2017-08-30] MEDS ORDERED: Tamsulosin 0.4mg cap ORAL SCH (23:00)
[2017-08-31] VITALS (7 sets, daily range): BP systolic 135–147; BP diastolic 70–86
[2017-08-31] MEDS: NovoLOG Insulin Flexpen SUBQ SCH ×4 (06:30→20:44)
[2017-08-31 07:15] LABS: BASOPHILS % (AUTO) 1.3 % (0.0-2.0); EOSINOPHILS % (AUTO) 3.5 % (0.0-3.0); HEMATOCRIT 40.9 % (42.0-52.0); LYMPHOCYTES % (AUTO) 19.7 % (20.0-45.0); MEAN CORPUSCULAR VOLUME 94 FL (80-99); MONOCYTES % (AUTO) 6.9 % (1.0-10.0); NEUTROPHILS % (AUTO) 68.6 % (45.0-75.0); PLATELET COUNT 221 K/UL (150-450); RED BLOOD COUNT 4.36 M/UL (4.70-6.10); RED CELL DISTRIBUTION WIDTH 11.1 % (11.6-14.8); WHITE BLOOD COUNT 6.1 K/UL (4.8-10.8)
[2017-08-31 07:54] LABS: % IRON SATURATION 22 % (15-50); IRON 59 ug/dL (50-175); TOTAL IRON BINDING CAPACITY 266 ug/dL (250-450)
[2017-08-31 08:22] LABS: ALANINE AMINOTRANSFERASE 14 U/L (12-78); ALBUMIN 3.2 G/DL (3.4-5.0); ALBUMIN/GLOBULIN RATIO 0.9 (1.0-2.7); ALKALINE PHOSPHATASE 57 U/L (46-116); ANION GAP 8 mmol/L (5-15); ASPARTATE AMINO TRANSFERASE 26 U/L (15-37); BILIRUBIN,TOTAL 0.5 MG/DL (0.2-1.0); BLOOD UREA NITROGEN 28 mg/dL (7-18); CARBON DIOXIDE 25 MMOL/L (21-32); CHLORIDE 104 MMOL/L (98-107); CHOLESTEROL 125 MG/DL (< 200); CREATININE 2.3 MG/DL (0.55-1.30); FERRITIN 247 NG/ML (8-388); HDL CHOLESTEROL 38 MG/DL (40-60); POTASSIUM 4.1 MMOL/L (3.5-5.1); SODIUM 136 MMOL/L (136-145); TRIGLYCERIDES 85 MG/DL (30-150)
[2017-08-31] MEDS: Aspirin Baby 81mg ORAL SCH (08:30)
[2017-08-31] MEDS: Heparin 5000 units/ml inj SUBQ SCH ×2 (08:32→20:46)
[2017-08-31 09:04] LABS: CREATINE KINASE 55 U/L (26-308); PHOSPHORUS 3.2 MG/DL (2.5-4.9)
--- NOTE | 2017-08-31 09:44 | Pulmonology Progress Note ---
Assessment/Plan Problems: (1) Acute encephalopathy (2) CVA (cerebral vascular accident) (3) HTN (hypertension) (4) CKD (chronic kidney disease) Assessment/Plan pt/ot swallow evaluation echo reviewed social service to find out home safety neuro and cardio notes reviewed. Subjective ROS Limited/Unobtainable: No Constitutional: Reports: no symptoms HEENT: Repors: no symptoms Respiratory: Reports: no symptoms Gastrointestinal/Abdominal: Reports: no symptoms Allergies: Coded Allergies: NO KNOWN ALLERGIES (Unverified Allergy, Unknown, 05/08/15) Objective Last 24 Hour Vital Signs Date Time Temp Pulse Resp B/P (MAP) Pulse Ox O2 Delivery O2 Flow Rate FiO2 08/31/17 04:00 98.6 68 18 146/79 94 Room Air 98.6 08/31/17 04:00 65 08/31/17 00:00 97.9 82 20 147/84 97 Room Air 97.9 08/31/17 00:00 62 08/30/17 20:00 75 08/30/17 20:00 98.2 67 20 157/86 96 Room Air 98.2 08/30/17 15:59 97.4 67 16 134/70 96 Room Air 97.4 08/30/17 15:50 72 08/30/17 12:00 97.3 81 18 144/72 99 97.3 08/30/17 11:41 74 Intake and Output 08/30/17 08/31/17 19:00 07:00 Intake Total 1872 ml 200 ml Output Total 700 ml 275 ml Balance 1172 ml -75 ml Intake Oral 972 ml 200 ml IV Total 900 ml Output Urine Total 700 ml 275 ml # Voids 4 # Bowel Movements 1 General Appearance: WD/WN HEENT: normocephalic, atraumatic Respiratory/Chest: chest wall non-tender, lungs clear Cardiovascular: normal peripheral pulses, normal rate Abdomen: normal bowel sounds, soft, non tender Genitourinary: normal external genitalia Extremities: no cyanosis Skin: no rash 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 Laboratory Tests 08/31/17 06:15: White Blood Count 6.1, Red Blood Count 4.36L, Hemoglobin 14.0L, Hematocrit 40.9L , Mean Corpuscular Volume 94, Mean Corpuscular Hemoglobin 32.1H, Mean Corpuscular Hemoglobin Concent 34.2, Red Cell Distribution Width 11.1L, Platelet Count 221, Mean Platelet Volume 6.7, Neutrophils (%) (Auto) 68.6, Lymphocytes (%) (Auto) 19.7L, Monocytes (%) (Auto) 6.9, Eosinophils (%) (Auto) 3.5H, Basophils (%) (Auto) 1.3, Sodium Level 136, Potassium Level 4.1, Chloride Level 104, Carbon Dioxide Level 25, Anion Gap 8, Blood Urea Nitrogen 28H, Creatinine 2.3H, Estimat Glomerular Filtration Rate , Glucose Level 78, Hemoglobin A1c 5.8, Uric Acid 4.5, Calcium Level 9.0, Phosphorus Level 3.2, Magnesium Level 1.8, Iron Level 59, Total Iron Binding Capacity 266, Percent Iron Saturation 22, Unsaturated Iron Binding 207, Ferritin 247, Total Bilirubin 0.5, Aspartate Amino Transf (AST/SGOT) 26, Alanine Aminotransferase (ALT/SGPT) 14, Alkaline Phosphatase 57, Total Creatine Kinase 55, Troponin I 0.003, Pro-B- Type Natriuretic Peptide 1040H, Total Protein 6.6, Albumin 3.2L, Globulin 3.4, Albumin/Globulin Ratio 0.9L, Triglycerides Level 85, Cholesterol Level 125, LDL Cholesterol 84, HDL Cholesterol 38L, Cholesterol/HDL Ratio 3.3, Vitamin B12 Level 556, Folate 7.7L, Thyroid Stimulating Hormone (TSH) 1.076 Current Medications Medications (Trade) Dose Ordered Sig/Pete Route PRN Reason Start Time Stop Time Status Last Admin Dose Admin Acetaminophen (Tylenol) 650 mg Q4H PRN ORAL T>100.5 08/29/17 17:15 09/28/17 17:14 Albuterol/ Ipratropium (Albuterol/ Ipratropium) 3 ml Q4H PRN HHN Shortness of Breath 08/29/17 17:15 09/03/17 17:14 Aspirin (ASA) 81 mg DAILY ORAL 08/30/17 13:30 09/29/17 13:29 08/31/17 08:30 Atorvastatin Calcium (Lipitor) 10 mg BEDTIME ORAL 08/29/17 21:00 09/28/17 20:59 08/30/17 20:41 Clonidine HCl (Catapres Tab) 0.1 mg Q4H PRN ORAL SBP > 160mmHg 08/29/17 17:15 4/4/18 17:14 Dextrose (Dextrose 50%) STAT PRN IV Hypoglycemia 08/29/17 17:30 09/28/17 17:29 Escitalopram Oxalate (Lexapro) 5 mg DAILY ORAL 08/31/17 09:00 09/30/17 08:59 08/31/17 08:30 Heparin Sodium (Porcine) (Heparin 5000 units/ml) 5,000 units EVERY 12 HOURS SUBQ 08/29/17 21:00 09/28/17 20:59 08/31/17 08:32 Insulin Aspart (NovoLOG) BEFORE MEALS AND HS SUBQ 08/29/17 21:00 09/28/17 20:59 Lorazepam (Ativan 2mg/ml 1ml) 0.5 mg Q4H PRN IV For Anxiety 08/29/17 17:15 09/05/17 17:14 Morphine Sulfate (Morphine Sulfate) 1 mg Q4H PRN IVP Severe Pain (Pain Scale 7-10) 08/29/17 17:15 09/05/17 17:14 Nitroglycerin (Ntg) 0.4 mg Q5M X 3 DOSES PRN SL Prn Chest Pain 08/29/17 17:15 09/28/17 17:14 Ondansetron HCl (Zofran) 4 mg Q6H PRN IVP Nausea & Vomiting 08/29/17 17:15 09/28/17 17:14 Polyethylene Glycol (Miralax) 17 gm HSPRN PRN ORAL Constipation 08/29/17 21:00 09/28/17 20:59 Sodium Chloride 1,000 ml @ 75 mls/hr [id number] IV 08/29/17 18:30 09/28/17 18:29 08/30/17 20:43 Tamsulosin HCl (Flomax) 0.4 mg BEDTIME ORAL 08/30/17 23:00 09/29/17 22:59 08/30/17 23:55 Temazepam (Restoril) 15 mg HSPRN PRN ORAL Insomnia 08/29/17 21:00 09/05/17 20:59 DANK SANCHEZ Aug 31, 2017 09:43
--- NOTE | 2017-08-31 12:36 | Nephrology Progress Note ---
Assessment/Plan Problem List: (1) Vfvtk-[id number] kidney injury (2) Acute encephalopathy (3) HTN (hypertension) Assessment (1) Acute encephalopathy (2) CVA (cerebral vascular accident) (3) HTN (hypertension) (4) CKD (chronic kidney disease), proteinuria (5) BPH Plan Flomax slow hydrate monitor renal parameters avoid nephrotoxics per orders per consultants DIMITRI: Medical renal disease. Prostate hypertrophy. 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 Objective Objective Last 24 Hour Vital Signs Date Time Temp Pulse Resp B/P (MAP) Pulse Ox O2 Delivery O2 Flow Rate FiO2 08/31/17 08:00 97.7 71 18 147/77 96 Room Air 97.7 08/31/17 07:54 82 08/31/17 04:00 98.6 68 18 146/79 94 Room Air 98.6 08/31/17 04:00 65 08/31/17 00:00 97.9 82 20 147/84 97 Room Air 97.9 08/31/17 00:00 62 08/30/17 20:00 75 08/30/17 20:00 98.2 67 20 157/86 96 Room Air 98.2 08/30/17 15:59 97.4 67 16 134/70 96 Room Air 97.4 08/30/17 15:50 72 Intake and Output 08/30/17 08/31/17 19:00 07:00 Intake Total 1872 ml 275 ml Output Total 700 ml 275 ml Balance 1172 ml 0 ml Intake Oral 972 ml 200 ml IV Total 900 ml 75 ml Output Urine Total 700 ml 275 ml # Voids 4 # Bowel Movements 1 Laboratory Tests 08/31/17 06:15: White Blood Count 6.1, Red Blood Count 4.36L, Hemoglobin 14.0L, Hematocrit 40.9L , Mean Corpuscular Volume 94, Mean Corpuscular Hemoglobin 32.1H, Mean Corpuscular Hemoglobin Concent 34.2, Red Cell Distribution Width 11.1L, Platelet Count 221, Mean Platelet Volume 6.7, Neutrophils (%) (Auto) 68.6, Lymphocytes (%) (Auto) 19.7L, Monocytes (%) (Auto) 6.9, Eosinophils (%) (Auto) 3.5H, Basophils (%) (Auto) 1.3, Sodium Level 136, Potassium Level 4.1, Chloride Level 104, Carbon Dioxide Level 25, Anion Gap 8, Blood Urea Nitrogen 28H, Creatinine 2.3H, Estimat Glomerular Filtration Rate , Glucose Level 78, Hemoglobin A1c 5.8, Uric Acid 4.5, Calcium Level 9.0, Phosphorus Level 3.2, Magnesium Level 1.8, Iron Level 59, Total Iron Binding Capacity 266, Percent Iron Saturation 22, Unsaturated Iron Binding 207, Ferritin 247, Total Bilirubin 0.5, Aspartate Amino Transf (AST/SGOT) 26, Alanine Aminotransferase (ALT/SGPT) 14, Alkaline Phosphatase 57, Total Creatine Kinase 55, Troponin I 0.003, Pro-B- Type Natriuretic Peptide 1040H, Total Protein 6.6, Albumin 3.2L, Globulin 3.4, Albumin/Globulin Ratio 0.9L, Triglycerides Level 85, Cholesterol Level 125, LDL Cholesterol 84, HDL Cholesterol 38L, Cholesterol/HDL Ratio 3.3, Vitamin B12 Level 556, Folate 7.7L, Thyroid Stimulating Hormone (TSH) 1.076 Height (Feet): 5 Height (Inches): 3.00 Weight (Pounds): 145 LATISHA SONI Aug 31, 2017 12:36
[2017-08-31] MEDS ORDERED: Tamsulosin 0.4mg cap ORAL SCH (12:45)
[2017-08-31] MEDS ORDERED: Albuterol/Ipratropium 3ml neb HHN PRN (17:15)
[2017-08-31] MEDS ORDERED: Nitroglycerin Subl 0.4mg tab SL PRN (17:15)
[2017-08-31] MEDS ORDERED: Miralax 17gm pkt ORAL PRN (17:15)
[2017-08-31] MEDS ORDERED: LORazepam Inj 2mg/ml 1ml IV PRN (17:15)
[2017-08-31] MEDS ORDERED: Morphine Sulfate 2mg/ml Inj IVP PRN (17:15)
[2017-08-31] MEDS: Tamsulosin 0.4mg cap ORAL SCH (17:27)
--- NOTE | 2017-08-31 19:09 | General Progress Note ---
Assessment/Plan Status: stable Assessment/Plan mdd cva lexapro 5mg qam Subjective Date patient seen: Aug 31, 2017 Neurologic/Psychiatric: Reports: anxiety, depressed, emotional problems Allergies: Coded Allergies: NO KNOWN ALLERGIES (Unverified Allergy, Unknown, 05/08/15) Objective Last 24 Hour Vital Signs Date Time Temp Pulse Resp B/P (MAP) Pulse Ox O2 Delivery O2 Flow Rate FiO2 08/31/17 17:43 97.9 73 18 141/79 96 Room Air 97.9 08/31/17 16:10 97.3 75 18 135/70 99 Room Air 97.3 08/31/17 12:40 81 08/31/17 12:35 77 08/31/17 12:30 65 08/31/17 12:30 97.7 77 18 147/86 94 Room Air 97.7 08/31/17 11:49 65 08/31/17 08:00 97.7 71 18 147/77 96 Room Air 97.7 08/31/17 07:54 82 08/31/17 04:00 98.6 68 18 146/79 94 Room Air 98.6 08/31/17 04:00 65 08/31/17 00:00 97.9 82 20 147/84 97 Room Air 97.9 08/31/17 00:00 62 08/30/17 20:00 75 08/30/17 20:00 98.2 67 20 157/86 96 Room Air 98.2 Intake and Output 08/30/17 08/31/17 19:00 07:00 Intake Total 1872 ml 275 ml Output Total 700 ml 275 ml Balance 1172 ml 0 ml Intake Oral 972 ml 200 ml IV Total 900 ml 75 ml Output Urine Total 700 ml 275 ml # Voids 4 # Bowel Movements 1 Laboratory Tests 08/31/17 06:15: White Blood Count 6.1, Red Blood Count 4.36L, Hemoglobin 14.0L, Hematocrit 40.9L , Mean Corpuscular Volume 94, Mean Corpuscular Hemoglobin 32.1H, Mean Corpuscular Hemoglobin Concent 34.2, Red Cell Distribution Width 11.1L, Platelet Count 221, Mean Platelet Volume 6.7, Neutrophils (%) (Auto) 68.6, Lymphocytes (%) (Auto) 19.7L, Monocytes (%) (Auto) 6.9, Eosinophils (%) (Auto) 3.5H, Basophils (%) (Auto) 1.3, Sodium Level 136, Potassium Level 4.1, Chloride Level 104, Carbon Dioxide Level 25, Anion Gap 8, Blood Urea Nitrogen 28H, Creatinine 2.3H, Estimat Glomerular Filtration Rate , Glucose Level 78, Hemoglobin A1c 5.8, Uric Acid 4.5, Calcium Level 9.0, Phosphorus Level 3.2, Magnesium Level 1.8, Iron Level 59, Total Iron Binding Capacity 266, Percent Iron Saturation 22, Unsaturated Iron Binding 207, Ferritin 247, Total Bilirubin 0.5, Aspartate Amino Transf (AST/SGOT) 26, Alanine Aminotransferase (ALT/SGPT) 14, Alkaline Phosphatase 57, Total Creatine Kinase 55, Troponin I 0.003, Pro-B- Type Natriuretic Peptide 1040H, Total Protein 6.6, Albumin 3.2L, Globulin 3.4, Albumin/Globulin Ratio 0.9L, Triglycerides Level 85, Cholesterol Level 125, LDL Cholesterol 84, HDL Cholesterol 38L, Cholesterol/HDL Ratio 3.3, Vitamin B12 Level 556, Folate 7.7L, Thyroid Stimulating Hormone (TSH) 1.076 Height (Feet): 5 Height (Inches): 3.00 Weight (Pounds): 145 General Appearance: no apparent distress, alert Neurologic: alert, oriented x 3, normal mood/affect Soha Evans M.D. Aug 31, 2017 19:09
[2017-09-01] VITALS: BP 142/78
[2017-09-01 04:00] VITALS: BP 140/74
[2017-09-01] MEDS: NovoLOG Insulin Flexpen SUBQ SCH ×4 (06:25→21:00)
[2017-09-01 07:48] LABS: ALANINE AMINOTRANSFERASE 15 U/L (12-78); ALBUMIN 3.2 G/DL (3.4-5.0); ALBUMIN/GLOBULIN RATIO 0.9 (1.0-2.7); ALKALINE PHOSPHATASE 59 U/L (46-116); ANION GAP 9 mmol/L (5-15); ASPARTATE AMINO TRANSFERASE 31 U/L (15-37); BILIRUBIN,TOTAL 0.5 MG/DL (0.2-1.0); BLOOD UREA NITROGEN 29 mg/dL (7-18); CALCIUM 9.2 MG/DL (8.5-10.1); CARBON DIOXIDE 24 MMOL/L (21-32); CHLORIDE 105 MMOL/L (98-107); CREATININE 2.4 MG/DL (0.55-1.30); PHOSPHORUS 2.7 MG/DL (2.5-4.9); SODIUM 138 MMOL/L (136-145)
[2017-09-01 08:35] VITALS: BP 148/76
[2017-09-01] MEDS: Escitalopram Oxalate 5mg tab ORAL SCH (08:57)
[2017-09-01] MEDS: Tamsulosin 0.4mg cap ORAL SCH ×2 (08:57→17:26)
[2017-09-01] MEDS: Aspirin Baby 81mg ORAL SCH (08:57)
[2017-09-01] MEDS: Heparin 5000 units/ml inj SUBQ SCH ×2 (08:58→23:21)
--- NOTE | 2017-09-01 11:43 | Nephrology Progress Note ---
Assessment/Plan Problem List: (1) Nxlta-ju-lkczgaz kidney injury Assessment: mainly CKD (2) Acute encephalopathy (3) HTN (hypertension) Assessment (1) Acute encephalopathy (2) CVA (cerebral vascular accident) (3) HTN (hypertension) (4) CKD (chronic kidney disease), proteinuria Cr stable (5) BPH Plan Flomax monitor renal parameters avoid nephrotoxics per orders per consultants ? DC DIMITRI: Medical renal disease. Prostate hypertrophy. 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 Objective Objective Last 24 Hour Vital Signs Date Time Temp Pulse Resp B/P (MAP) Pulse Ox O2 Delivery O2 Flow Rate FiO2 09/01/17 08:35 98.1 71 20 148/76 96 98.1 09/01/17 08:05 96 18 Room Air 21 09/01/17 04:00 97.6 71 18 140/74 97 97.6 09/01/17 04:00 Room Air 09/01/17 00:00 97.6 68 18 142/78 96 97.6 09/01/17 00:00 Room Air 08/31/17 20:00 Room Air 08/31/17 19:59 97.9 77 18 144/86 94 97.9 08/31/17 17:43 97.9 73 18 141/79 96 Room Air 97.9 08/31/17 16:10 97.3 75 18 135/70 99 Room Air 97.3 08/31/17 12:40 81 08/31/17 12:35 77 08/31/17 12:30 65 08/31/17 12:30 97.7 77 18 147/86 94 Room Air 97.7 08/31/17 11:49 65 Intake and Output 08/31/17 09/01/17 19:00 07:00 Intake Total 776 ml 260 ml Balance 776 ml 260 ml Intake Oral 476 ml 260 ml IV Total 300 ml # Bowel Movements 2 Laboratory Tests 09/01/17 05:10: Sodium Level 138, Potassium Level 4.0, Chloride Level 105, Carbon Dioxide Level 24, Anion Gap 9, Blood Urea Nitrogen 29H, Creatinine 2.4H, Estimat Glomerular Filtration Rate , Glucose Level 84, Calcium Level 9.2, Phosphorus Level 2.7, Magnesium Level 1.7L, Total Bilirubin 0.5, Aspartate Amino Transf (AST/SGOT) 31 , Alanine Aminotransferase (ALT/SGPT) 15, Alkaline Phosphatase 59, Total Protein 6.8, Albumin 3.2L, Globulin 3.6, Albumin/Globulin Ratio 0.9L Height (Feet): 5 Height (Inches): 3.00 Weight (Pounds): 145 LATISHA SONI Sep 01, 2017 11:43
[2017-09-01 11:49] VITALS: BP 139/79
--- NOTE | 2017-09-01 15:32 | Consultation ---
History of Present Illness General Date patient seen: Sep 01, 2017 Chief Complaint: Stroke Symptoms Reason for Consultation: AAA Present Illness HPI 82 year old male with history of stroke 10 years ago an ASA/Plavix, HTN, CAD, presented with recent left lower extremity weakness and difficulty with ambulation. Was admitted for work up of acute CVA. Denies any recent, trauma, falls, vision changes or other localizing symptoms. During admission had an abdominal ultrasound which identified a 4.4cm fusiform AAA. Surgery called to evaluate. Could not note history of this AAA. Patient otherwise asymptomatic. Allergies: Coded Allergies: NO KNOWN ALLERGIES (Unverified Allergy, Unknown, 05/08/15) Medication History Scheduled Atorvastatin Calcium* (Lipitor*), 10 MG ORAL BEDTIME, (Reported) Ferrous Sulfate* (Ferrous Sulfate*), 325 MG ORAL TWICE A DAY, (Reported) Folic Acid* (Folic Acid*), 1 MG ORAL DAILY, (Reported) P-Ephed Hcl/Triprolidine Hcl (Aprodine Tablet), 1 EACH PO THREE TIMES A DAY, ( Reported) Pantoprazole* (Protonix*), 40 MG ORAL DAILY, (Reported) Silodosin (Rapaflo), 8 MG ORAL DAILY, (Reported) Valsartan (Diovan), 160 MG ORAL DAILY, (Reported) Patient History History Provided By: Patient, Medical Record, PMD Healthcare decision maker SELF Resuscitation status Full Code Advanced Directive on File Past Medical/Surgical History Past Medical/Surgical History: (1) Left leg weakness (2) CVA (cerebral vascular accident) (3) CKD (chronic kidney disease) (4) HTN (hypertension) (5) Acute encephalopathy (6) Melena (7) Diabetes mellitus (8) Anemia (9) Atelectasis (10) Cholangitis (11) Pancreatitis (12) Sepsis (13) ATN (acute tubular necrosis) (14) Abdominal pain (15) GI bleed (16) Biliary obstruction (17) Common bile duct dilatation (18) Anemia associated with acute blood loss (19) Episode of generalized weakness (20) Rifkj-co-qngutks kidney injury Review of Systems Constitutional: Denies: no symptoms, see HPI, chills, sweats, fever, malaise, weakness, other Eye: Denies: no symptoms, see HPI, eye pain, blurred vision, tearing, double vision, nose pain, nose congestion, acuity changes, discharge, other ENT: Denies: no symptoms, see HPI, ear pain, ear discharge, nose pain, nose congestion, throat pain, throat swelling, mouth pain, hearing loss, nasal discharge, other Respiratory: Denies: no symptoms, see HPI, cough, orthopnea, shortness of breath, stridor, wheezing, MATA, sputum, other Cardiovascular: Denies: no symptoms, see HPI, chest pain, edema, palpitations, syncope, PND, other Gastrointestinal: Denies: no symptoms, see HPI, abdominal pain, constipation, diarrhea, nausea, vomiting, melena, hematemesis, other Genitourinary: Denies: no symptoms, see HPI, discharge, dysuria, frequency, hematuria, pain, retention, incontinence, urgency, vag bleed/dc, other Musculoskeletal: Denies: no symptoms, see HPI, back pain, gout, joint pain, joint swelling, muscle pain, muscle stiffness, other Skin: Denies: no symptoms, see HPI, rash, change in color, change in hair/nails , dryness, lesions, other Psychiatric: Denies: no symptoms, see HPI, prior hx, anxiety, depressed feelings, emotional problems, SI, HI, hallucinations, other Neurological: Denies: no symptoms, see HPI, headache, numbness, paresthesia, seizure, tingling, tremors, focal weakness, syncope, dizziness, other Endocrine: Denies: no symptoms, see HPI, excessive sweating, flushing, intolerance to temperature, increased thirst, increased urine, unexplained weight loss, other Hematologic/Lymphatic: Denies: no symptoms, see HPI, anemia, blood clots, easy bleeding, easy bruising, swollen glands, diathesis, other Physical Exam General Appearance: no apparent distress, alert Lines, tubes and drains: peripheral HEENT: normocephalic, atraumatic, mucous membranes moist, PERRL Neck: supple, normal inspection Respiratory/Chest: lungs clear, normal breath sounds, no respiratory distress, no accessory muscle use Cardiovascular/Chest: normal peripheral pulses, normal rate Abdomen: normal bowel sounds, non tender, soft, no organomegaly, no mass Extremities: normal range of motion, non-tender, normal inspection, no calf tenderness Neurologic: new accounts representative II-XII grossly normal, no motor/sensory deficits, alert, oriented x 3 Last 24 Hour Vital Signs Date Time Temp Pulse Resp B/P (MAP) Pulse Ox O2 Delivery O2 Flow Rate FiO2 09/01/17 11:50 94 83 83 09/01/17 11:49 98.6 94 20 139/79 95 98.6 09/01/17 08:35 98.1 71 20 148/76 96 98.1 09/01/17 08:05 96 18 Room Air 21 09/01/17 04:00 97.6 71 18 140/74 97 97.6 09/01/17 04:00 Room Air 09/01/17 00:00 97.6 68 18 142/78 96 97.6 09/01/17 00:00 Room Air 08/31/17 20:00 Room Air 08/31/17 19:59 97.9 77 18 144/86 94 97.9 08/31/17 17:43 97.9 73 18 141/79 96 Room Air 97.9 08/31/17 16:10 97.3 75 18 135/70 99 Room Air 97.3 Intake and Output 08/31/17 09/01/17 19:00 07:00 Intake Total 776 ml 260 ml Balance 776 ml 260 ml Intake Oral 476 ml 260 ml IV Total 300 ml # Bowel Movements 2 Laboratory Tests Test 09/01/17 05:10 Sodium Level 138 MMOL/L (136-145) Potassium Level 4.0 MMOL/L (3.5-5.1) Chloride Level 105 MMOL/L (98-107) Carbon Dioxide Level 24 MMOL/L (21-32) Anion Gap 9 mmol/L (5-15) Blood Urea Nitrogen 29 mg/dL (7-18) H Creatinine 2.4 MG/DL (0.55-1.30) H Estimat Glomerular Filtration Rate mL/min (>60) Glucose Level 84 MG/DL (74-106) Calcium Level 9.2 MG/DL (8.5-10.1) Phosphorus Level 2.7 MG/DL (2.5-4.9) Magnesium Level 1.7 MG/DL (1.8-2.4) L Total Bilirubin 0.5 MG/DL (0.2-1.0) Aspartate Amino Transf (AST/SGOT) 31 U/L (15-37) Alanine Aminotransferase (ALT/SGPT) 15 U/L (12-78) Alkaline Phosphatase 59 U/L (46-116) Total Protein 6.8 G/DL (6.4-8.2) Albumin 3.2 G/DL (3.4-5.0) L Globulin 3.6 g/dL Albumin/Globulin Ratio 0.9 (1.0-2.7) L Height (Feet): 5 Height (Inches): 3.00 Weight (Pounds): 145 Medications Current Medications Medications (Trade) Dose Ordered Sig/Pete Route PRN Reason Start Time Stop Time Status Last Admin Dose Admin Acetaminophen (Tylenol) 650 mg Q4H PRN ORAL T>100.5 08/31/17 17:15 09/28/17 17:14 Albuterol/ Ipratropium (Albuterol/ Ipratropium) 3 ml Q4H PRN HHN Shortness of Breath 08/31/17 17:15 09/03/17 17:14 Aspirin (ASA) 81 mg DAILY ORAL 09/01/17 09:00 09/29/17 13:29 09/01/17 08:57 Atorvastatin Calcium (Lipitor) 10 mg BEDTIME ORAL 08/31/17 21:00 09/28/17 20:59 08/31/17 20:43 Clonidine HCl (Catapres Tab) 0.1 mg Q4H PRN ORAL SBP > 160mmHg 08/31/17 17:15 09/28/17 17:14 Dextrose (Dextrose 50%) STAT PRN IV Hypoglycemia 08/31/17 17:30 09/28/17 17:29 Escitalopram Oxalate (Lexapro) 5 mg DAILY ORAL 09/01/17 09:00 09/30/17 08:59 09/01/17 08:57 Heparin Sodium (Porcine) (Heparin 5000 units/ml) 5,000 units EVERY 12 HOURS SUBQ 08/31/17 21:00 09/28/17 20:59 09/01/17 08:58 Insulin Aspart (NovoLOG) BEFORE MEALS AND HS SUBQ 08/31/17 21:00 09/28/17 20:59 08/31/17 20:44 Lorazepam (Ativan 2mg/ml 1ml) 0.5 mg Q4H PRN IV For Anxiety 08/31/17 17:15 09/05/17 17:14 Morphine Sulfate (Morphine Sulfate) 1 mg Q4H PRN IVP Severe Pain (Pain Scale 7-10) 08/31/17 17:15 09/05/17 17:14 Nitroglycerin (Ntg) 0.4 mg Q5M X 3 DOSES PRN SL Prn Chest Pain 08/31/17 17:15 09/28/17 17:14 Ondansetron HCl (Zofran) 4 mg Q6H PRN IVP Nausea & Vomiting 08/31/17 17:15 09/28/17 17:14 Pantoprazole (Protonix) 40 mg DAILY ORAL 09/01/17 09:00 09/30/17 12:59 09/01/17 08:57 Polyethylene Glycol (Miralax) 17 gm HSPRN PRN ORAL Constipation 08/31/17 17:15 09/28/17 17:14 Tamsulosin HCl (Flomax) 0.4 mg BID ORAL 08/31/17 18:00 09/29/17 22:59 09/01/17 08:57 Temazepam (Restoril) 15 mg HSPRN PRN ORAL Insomnia 08/31/17 21:00 09/05/17 20:59 Assessment/Plan Problem List: (1) AAA (abdominal aortic aneurysm) Assessment & Plan: 82M with recent acute CVA, likely TIA, symptoms since resolved. During hospitalization had ultrasound which identified 4.4cm AAA. No prior history of this as per patient. given size and asymptomatic can monitor for now. would recommend outpatient follow up repeat ultrasound or CT scan in 6 months. currently not candidate for repair but if enlarges may be. above information discussed with patient. will have outpatient follow up and if required repair will be seen by CT surgery. thank you for this consult. okay to follow up as outpatient from surgical standpoint ICD Codes: I71.4 - Abdominal aortic aneurysm, without rupture SNOMED: [id number] Qualifiers: Qualified Codes: I71.4 - Abdominal aortic aneurysm, without rupture Status: stable Félix Castellano Sep 01, 2017 15:32
[2017-09-01 16:00] VITALS: BP 150/90
--- NOTE | 2017-09-01 16:29 | General Progress Note ---
Assessment/Plan Status: stable, progressing Assessment/Plan mdd cva lexapro 5mg qam Subjective Date patient seen: Sep 01, 2017 Neurologic/Psychiatric: Reports: anxiety, depressed Allergies: Coded Allergies: NO KNOWN ALLERGIES (Unverified Allergy, Unknown, 05/08/15) Subjective the pt is Nepali speaking overall does well no agitation Objective Last 24 Hour Vital Signs Date Time Temp Pulse Resp B/P (MAP) Pulse Ox O2 Delivery O2 Flow Rate FiO2 09/01/17 11:50 94 83 83 09/01/17 11:49 98.6 94 20 139/79 95 98.6 09/01/17 08:35 98.1 71 20 148/76 96 98.1 09/01/17 08:05 96 18 Room Air 21 09/01/17 04:00 97.6 71 18 140/74 97 97.6 09/01/17 04:00 Room Air 09/01/17 00:00 97.6 68 18 142/78 96 97.6 09/01/17 00:00 Room Air 08/31/17 20:00 Room Air 08/31/17 19:59 97.9 77 18 144/86 94 97.9 08/31/17 17:43 97.9 73 18 141/79 96 Room Air 97.9 Intake and Output 08/31/17 09/01/17 19:00 07:00 Intake Total 776 ml 260 ml Balance 776 ml 260 ml Intake Oral 476 ml 260 ml IV Total 300 ml # Bowel Movements 2 Laboratory Tests 09/01/17 05:10: Sodium Level 138, Potassium Level 4.0, Chloride Level 105, Carbon Dioxide Level 24, Anion Gap 9, Blood Urea Nitrogen 29H, Creatinine 2.4H, Estimat Glomerular Filtration Rate , Glucose Level 84, Calcium Level 9.2, Phosphorus Level 2.7, Magnesium Level 1.7L, Total Bilirubin 0.5, Aspartate Amino Transf (AST/SGOT) 31 , Alanine Aminotransferase (ALT/SGPT) 15, Alkaline Phosphatase 59, Total Protein 6.8, Albumin 3.2L, Globulin 3.6, Albumin/Globulin Ratio 0.9L Height (Feet): 5 Height (Inches): 3.00 Weight (Pounds): 145 General Appearance: WD/WN, no apparent distress, alert Neurologic: alert, oriented x 3, responsive, depressed affect Soha Evans M.D. Sep 01, 2017 16:29
[2017-09-01] MEDS ORDERED: FLOMAX0.4 MG ORAL (18:58)
[2017-09-01] MEDS ORDERED: LEXAPRO10 MG ORAL (18:58)
--- NOTE | 2017-09-01 18:59 | Pulmonology Progress Note ---
Assessment/Plan Problems: (1) Acute encephalopathy (2) CVA (cerebral vascular accident) (3) HTN (hypertension) (4) CKD (chronic kidney disease) Assessment/Plan pt/ot in progress swallow evaluation noted echo reviewed social service note reviewed neuro and cardio notes reviewed. dc planning for home in am Subjective ROS Limited/Unobtainable: No Constitutional: Reports: no symptoms HEENT: Repors: no symptoms Respiratory: Reports: no symptoms Allergies: Coded Allergies: NO KNOWN ALLERGIES (Unverified Allergy, Unknown, 05/08/15) Objective Last 24 Hour Vital Signs Date Time Temp Pulse Resp B/P (MAP) Pulse Ox O2 Delivery O2 Flow Rate FiO2 09/01/17 16:00 Room Air 09/01/17 16:00 97.9 97 20 150/90 95 Room Air 97.9 09/01/17 12:00 Room Air 09/01/17 11:50 94 83 83 09/01/17 11:49 98.6 94 20 139/79 95 98.6 09/01/17 08:35 Room Air 09/01/17 08:35 98.1 71 20 148/76 96 98.1 09/01/17 08:05 96 18 Room Air 21 09/01/17 04:00 97.6 71 18 140/74 97 97.6 09/01/17 04:00 Room Air 09/01/17 00:00 97.6 68 18 142/78 96 97.6 09/01/17 00:00 Room Air 08/31/17 20:00 Room Air 08/31/17 19:59 97.9 77 18 144/86 94 97.9 Intake and Output 08/31/17 09/01/17 19:00 07:00 Intake Total 776 ml 260 ml Balance 776 ml 260 ml Intake Oral 476 ml 260 ml IV Total 300 ml # Bowel Movements 2 General Appearance: WD/WN HEENT: normocephalic, atraumatic Respiratory/Chest: chest wall non-tender, lungs clear Cardiovascular: normal peripheral pulses, normal rate Abdomen: normal bowel sounds, soft, non tender Genitourinary: normal external genitalia Extremities: no clubbing Skin: no ulcers Neurologic/Psychiatric: no motor/sensory deficits Laboratory Tests 09/01/17 05:10: Sodium Level 138, Potassium Level 4.0, Chloride Level 105, Carbon Dioxide Level 24, Anion Gap 9, Blood Urea Nitrogen 29H, Creatinine 2.4H, Estimat Glomerular Filtration Rate , Glucose Level 84, Calcium Level 9.2, Phosphorus Level 2.7, Magnesium Level 1.7L, Total Bilirubin 0.5, Aspartate Amino Transf (AST/SGOT) 31 , Alanine Aminotransferase (ALT/SGPT) 15, Alkaline Phosphatase 59, Total Protein 6.8, Albumin 3.2L, Globulin 3.6, Albumin/Globulin Ratio 0.9L Current Medications Medications (Trade) Dose Ordered Sig/Pete Route PRN Reason Start Time Stop Time Status Last Admin Dose Admin Acetaminophen (Tylenol) 650 mg Q4H PRN ORAL T>100.5 08/31/17 17:15 09/28/17 17:14 Albuterol/ Ipratropium (Albuterol/ Ipratropium) 3 ml Q4H PRN HHN Shortness of Breath 08/31/17 17:15 09/03/17 17:14 Aspirin (ASA) 81 mg DAILY ORAL 09/01/17 09:00 09/29/17 13:29 09/01/17 08:57 Atorvastatin Calcium (Lipitor) 10 mg BEDTIME ORAL 08/31/17 21:00 09/28/17 20:59 08/31/17 20:43 Clonidine HCl (Catapres Tab) 0.1 mg Q4H PRN ORAL SBP > 160mmHg 08/31/17 17:15 09/28/17 17:14 Dextrose (Dextrose 50%) STAT PRN IV Hypoglycemia 08/31/17 17:30 09/28/17 17:29 Escitalopram Oxalate (Lexapro) 5 mg DAILY ORAL 09/01/17 09:00 09/30/17 08:59 09/01/17 08:57 Heparin Sodium (Porcine) (Heparin 5000 units/ml) 5,000 units EVERY 12 HOURS SUBQ 08/31/17 21:00 09/28/17 20:59 09/01/17 08:58 Insulin Aspart (NovoLOG) BEFORE MEALS AND HS SUBQ 08/31/17 21:00 09/28/17 20:59 08/31/17 20:44 Lorazepam (Ativan 2mg/ml 1ml) 0.5 mg Q4H PRN IV For Anxiety 08/31/17 17:15 09/05/17 17:14 Morphine Sulfate (Morphine Sulfate) 1 mg Q4H PRN IVP Severe Pain (Pain Scale 7-10) 08/31/17 17:15 09/05/17 17:14 Nitroglycerin (Ntg) 0.4 mg Q5M X 3 DOSES PRN SL Prn Chest Pain 08/31/17 17:15 09/28/17 17:14 Ondansetron HCl (Zofran) 4 mg Q6H PRN IVP Nausea & Vomiting 08/31/17 17:15 09/28/17 17:14 Pantoprazole (Protonix) 40 mg DAILY ORAL 09/01/17 09:00 09/30/17 12:59 09/01/17 08:57 Polyethylene Glycol (Miralax) 17 gm HSPRN PRN ORAL Constipation 08/31/17 17:15 09/28/17 17:14 Tamsulosin HCl (Flomax) 0.4 mg BID ORAL 08/31/17 18:00 09/29/17 22:59 09/01/17 17:26 Temazepam (Restoril) 15 mg HSPRN PRN ORAL Insomnia 08/31/17 21:00 09/05/17 20:59 DANK SANCHEZ Sep 01, 2017 18:59
[2017-09-01 19:38] VITALS: BP 135/85
[2017-09-02 00:20] VITALS: BP 146/81
[2017-09-02 04:00] VITALS: BP 145/80
[2017-09-02] MEDS: NovoLOG Insulin Flexpen SUBQ SCH ×3 (06:08→16:47)
[2017-09-02 08:00] VITALS: BP 137/84
[2017-09-02 08:47] VITALS: BP 137/84
[2017-09-02] MEDS: Escitalopram Oxalate 5mg tab ORAL SCH (08:57)
[2017-09-02] MEDS: Aspirin Baby 81mg ORAL SCH (08:57)
[2017-09-02] MEDS: Tamsulosin 0.4mg cap ORAL SCH (08:57)
[2017-09-02] MEDS: Heparin 5000 units/ml inj SUBQ SCH (09:01)
--- NOTE | 2017-09-02 10:28 | Diagnostic Imaging Report ---
APPROVED REPORT CPT Code: 93158 Vascular Symptoms Comments: AMS Doppler Spectral Velocity Analysis RightLeft RIGHT SIDE: ECA - Imaging reveals no significant plaque in the external carotid artery. arteries. The Doppler signal indicates the degree of stenosis is minimal (10%) in the common carotid artery, and (20%) in the internal carotid artery. VERTEBRAL - The vertebral artery is patent, without evidence of stenosis or steal. LEFT SIDE: ECA - Imaging reveals no significant plaque in the external carotid artery. arteries. The Doppler signal indicates the degree of stenosis is minimal (10%) in the common carotid artery, and (20%) in the internal carotid artery. VERTEBRAL - The vertebral artery is patent, without evidence of stenosis or steal.
[2017-09-02 12:00] VITALS: BP 134/83
--- NOTE | 2017-09-02 15:22 | Nephrology Progress Note ---
Assessment/Plan Problem List: (1) Ctsbv-ph-glqedlc kidney injury Assessment: mainly CKD (2) Acute encephalopathy (3) HTN (hypertension) Assessment (1) Acute encephalopathy (2) CVA (cerebral vascular accident) (3) HTN (hypertension) (4) CKD (chronic kidney disease), proteinuria Cr stable (5) BPH Plan Flomax monitor renal parameters avoid nephrotoxics per orders per consultants ? DC DIMITRI: Medical renal disease. Prostate hypertrophy. 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 Subjective ROS Limited/Unobtainable: No Objective Objective Last 24 Hour Vital Signs Date Time Temp Pulse Resp B/P (MAP) Pulse Ox O2 Delivery O2 Flow Rate FiO2 09/02/17 12:02 Room Air 09/02/17 12:00 98.1 89 19 134/83 94 98.1 09/02/17 09:00 73 97 101 09/02/17 08:47 98.1 97 19 137/84 95 Room Air 2.0 21 98.1 09/02/17 08:00 98.1 97 19 137/84 95 98.1 09/02/17 07:20 91 20 Room Air 21 09/02/17 04:00 98.8 72 20 145/80 95 Room Air 98.8 09/02/17 00:20 98.1 70 20 146/81 93 Room Air 98.1 09/01/17 19:48 88 20 Room Air 21 09/01/17 19:38 97.5 74 20 135/85 95 Room Air 97.5 09/01/17 16:00 Room Air 09/01/17 16:00 97.9 97 20 150/90 95 Room Air 97.9 Intake and Output 09/01/17 09/02/17 19:00 07:00 Intake Total 960 ml Balance 960 ml Intake Oral 960 ml # Voids 4 1 # Bowel Movements 1 Height (Feet): 5 Height (Inches): 3.00 Weight (Pounds): 145 General Appearance: no apparent distress Cardiovascular: normal rate Abdomen: soft Objective no change LATISHA SONI Sep 02, 2017 15:22
--- NOTE | 2017-09-02 15:27 | Pulmonology Progress Note ---
Assessment/Plan Problems: (1) Acute encephalopathy (2) CVA (cerebral vascular accident) (3) HTN (hypertension) (4) CKD (chronic kidney disease) Assessment/Plan swallow evaluation noted echo reviewed social service note reviewed neuro and cardio notes reviewed. dc planning for nowd/w pts at the bed site Subjective ROS Limited/Unobtainable: No Allergies: Coded Allergies: NO KNOWN ALLERGIES (Unverified Allergy, Unknown, 05/08/15) Objective Last 24 Hour Vital Signs Date Time Temp Pulse Resp B/P (MAP) Pulse Ox O2 Delivery O2 Flow Rate FiO2 09/02/17 12:02 Room Air 09/02/17 12:00 98.1 89 19 134/83 94 98.1 09/02/17 09:00 73 97 101 09/02/17 08:47 98.1 97 19 137/84 95 Room Air 2.0 21 98.1 09/02/17 08:00 98.1 97 19 137/84 95 98.1 09/02/17 07:20 91 20 Room Air 21 09/02/17 04:00 98.8 72 20 145/80 95 Room Air 98.8 09/02/17 00:20 98.1 70 20 146/81 93 Room Air 98.1 09/01/17 19:48 88 20 Room Air 21 09/01/17 19:38 97.5 74 20 135/85 95 Room Air 97.5 09/01/17 16:00 Room Air 09/01/17 16:00 97.9 97 20 150/90 95 Room Air 97.9 Intake and Output 09/01/17 09/02/17 19:00 07:00 Intake Total 960 ml Balance 960 ml Intake Oral 960 ml # Voids 4 1 # Bowel Movements 1 Objective General Appearance: WD/WN Lines, tubes and drains: peripheral HEENT: normocephalic, atraumatic Neck: non-tender, normal alignment Respiratory/Chest: chest wall non-tender, lungs clear Cardiovascular/Chest: normal peripheral pulses, normal rate Abdomen: normal bowel sounds, non tender Extremities: normal range of motion, non-tender Skin Exam: normal pigmentation Current Medications Medications (Trade) Dose Ordered Sig/Pete Route PRN Reason Start Time Stop Time Status Last Admin Dose Admin Acetaminophen (Tylenol) 650 mg Q4H PRN ORAL T>100.5 08/31/17 17:15 09/28/17 17:14 Albuterol/ Ipratropium (Albuterol/ Ipratropium) 3 ml Q4H PRN HHN Shortness of Breath 08/31/17 17:15 09/03/17 17:14 Aspirin (ASA) 81 mg DAILY ORAL 09/01/17 09:00 09/29/17 13:29 09/02/17 08:57 Atorvastatin Calcium (Lipitor) 10 mg BEDTIME ORAL 08/31/17 21:00 09/28/17 20:59 09/01/17 23:20 Clonidine HCl (Catapres Tab) 0.1 mg Q4H PRN ORAL SBP > 160mmHg 08/31/17 17:15 09/28/17 17:14 Dextrose (Dextrose 50%) STAT PRN IV Hypoglycemia 08/31/17 17:30 09/28/17 17:29 Escitalopram Oxalate (Lexapro) 5 mg DAILY ORAL 09/01/17 09:00 09/30/17 08:59 09/02/17 08:57 Heparin Sodium (Porcine) (Heparin 5000 units/ml) 5,000 units EVERY 12 HOURS SUBQ 08/31/17 21:00 09/28/17 20:59 09/02/17 09:01 Insulin Aspart (NovoLOG) BEFORE MEALS AND HS SUBQ 08/31/17 21:00 09/28/17 20:59 08/31/17 20:44 Lorazepam (Ativan 2mg/ml 1ml) 0.5 mg Q4H PRN IV For Anxiety 08/31/17 17:15 09/05/17 17:14 Morphine Sulfate (Morphine Sulfate) 1 mg Q4H PRN IVP Severe Pain (Pain Scale 7-10) 08/31/17 17:15 09/05/17 17:14 Nitroglycerin (Ntg) 0.4 mg Q5M X 3 DOSES PRN SL Prn Chest Pain 08/31/17 17:15 09/28/17 17:14 Ondansetron HCl (Zofran) 4 mg Q6H PRN IVP Nausea & Vomiting 08/31/17 17:15 09/28/17 17:14 Pantoprazole (Protonix) 40 mg DAILY ORAL 09/01/17 09:00 09/30/17 12:59 09/02/17 08:57 Polyethylene Glycol (Miralax) 17 gm HSPRN PRN ORAL Constipation 08/31/17 17:15 09/28/17 17:14 Tamsulosin HCl (Flomax) 0.4 mg BID ORAL 08/31/17 18:00 09/29/17 22:59 09/02/17 08:57 Temazepam (Restoril) 15 mg HSPRN PRN ORAL Insomnia 08/31/17 21:00 09/05/17 20:59 DANK SANCHEZ Sep 02, 2017 15:27
[2017-09-02 16:01] VITALS: BP 137/77
[2017-09-02] MEDS ORDERED: ASPIR 8181 MG ORAL (16:23)
--- NOTE | 2017-09-02 21:51 | General Progress Note ---
Assessment/Plan Assessment/Plan mdd cva lexapro 5mg qam Subjective Neurologic/Psychiatric: Reports: anxiety, depressed, emotional problems Allergies: Coded Allergies: NO KNOWN ALLERGIES (Unverified Allergy, Unknown, 05/08/15) Subjective the pt is Irish speaking Objective Last 24 Hour Vital Signs Date Time Temp Pulse Resp B/P (MAP) Pulse Ox O2 Delivery O2 Flow Rate FiO2 09/02/17 16:01 97.7 75 19 137/77 94 97.7 09/02/17 12:02 Room Air 09/02/17 12:00 98.1 89 19 134/83 94 98.1 09/02/17 09:00 73 97 101 09/02/17 08:47 98.1 97 19 137/84 95 Room Air 2.0 21 98.1 09/02/17 08:00 98.1 97 19 137/84 95 98.1 09/02/17 07:20 91 20 Room Air 21 09/02/17 04:00 98.8 72 20 145/80 95 Room Air 98.8 09/02/17 00:20 98.1 70 20 146/81 93 Room Air 98.1 Intake and Output 09/01/17 09/02/17 19:00 07:00 Intake Total 960 ml Balance 960 ml Intake Oral 960 ml # Voids 4 1 # Bowel Movements 1 Height (Feet): 5 Height (Inches): 3.00 Weight (Pounds): 145 Soha Evans M.D. Sep 02, 2017 21:51
--- NOTE | 2017-09-05 09:18 | Discharge Summary ---
Discharge Summary Hospital Course Date of Admission Aug 29, 2017 at 16:00 Date of Discharge Sep 02, 2017 at 17:22 Admitting Diagnosis CVA HPI Katie Gillette is a 82 year old male who was admitted on Aug 29, 2017 at 16:00 for Cerbrovascular Accident Hospital Course dc summary #[id number] Discharge Medications New Medications: Escitalopram Oxalate* (Lexapro*) 10 Mg Tablet 5 MG ORAL DAILY for 30 Days, TAB Tamsulosin HCl (Flomax) 0.4 Mg Cap.er.24h 0.4 MG ORAL BID for 30 Days, CAP Continued Medications: Aspirin* (Aspir 81*) 81 Mg Tablet.dr 81 MG ORAL DAILY, TAB Atorvastatin Calcium* (Lipitor*) 10 Mg Tablet 10 MG ORAL BEDTIME, TAB Silodosin (Rapaflo) 8 Mg Capsule 8 MG ORAL DAILY, CAP Discharge Condition Upon Discharge: stable Discharge Disposition Patient was discharged to Home (01) Discharge Diagnoses: Discharge Instructions Discharge Instructions Special Instructions I have been assigned to complete a D/C Summary on this account. I was not involved in the patient management Berkley Limon NP ([place]) Sep 05, 2017 09:18
--- NOTE | 2017-09-06 | Discharge Summary 2 SIG ---
DATE OF ADMISSION: 08/29/2017 DATE OF DISCHARGE: 09/02/2017 REASON FOR ADMISSION: 82-year-old male with a history of hypertension, diabetes, hyperlipidemia, BPH, CVA in 2007, on double antiplatelet therapy with aspirin and Plavix, and chronic obstructive pulmonary disease, presented to emergency room with the left lower leg weakness for two days. The patient stated that he was unable to walk secondary to leg weakness. While trying to get up, the patient lost balance and fell down. He was not sure if he had loss of consciousness. Symptoms developed gradually and as a result, he had difficulty in ambulation. CT of the head revealed no acute intracranial pathology, but showed extensive cardiovascular disease with multiple lacunar strokes. EKG revealed normal sinus rhythm. Chest x-ray revealed no acute cardiopulmonary pathology. No leukocytosis. Stable hemoglobin and hematocrit. Troponin - 0.013. ProBNP -438. BUN -29 and creatinine -2.5. ADMITTING DIAGNOSES: 1. Status post fall. 2. Acute encephalopathy. 3. Cerebrovascular disease. 4. Chronic kidney disease. 5. Transient left lower extremity weakness, probably transient ischemic attack. 6. Hypertension. HOSPITAL STAY: The patient was admitted. Cardiology, Neurology, and Nephrology consults were requested. Per shoemaker apprentice, the patient likely had non-syncopal fall. Second troponin was also negative. EKG revealed no acute ischemic changes. The patient was ruled out for acute myocardial infarction. Echocardiogram revealed preserved ejection fraction of 55% to 60%. No evidence of left ventricular hypertrophy. Orthostatic vital signs did not show any changes. Fall was likely non-syncopal as per shoemaker apprentice. No further interventions were needed. Neurologist seen and evaluated the patient. Left lower extremity weakness was transient, probably due to the transient ischemic attack. Lipid panel was stable. Continue dual antiplatelet therapy and statin. Carotid duplex revealed minimal stenosis and no significant plaque in external carotid artery. Fall precautions were maintained. The patient was working with physical and occupational therapy. According to the CT of the head, the patient had extensive cardiovascular disease with multiple lacunar strokes. Graphic Design Intern followed the patient. Per pewter finisher, renal ultrasound was done, results of which were consistent with medical renal disease and showed prostatic hypertrophy. Flomax was added to existing medication regimen. Incidental finding also included fusiform aortic abdominal aneurysm 4.4 cm. Surgery consult was requested. Per surgery recommendation given size of the aortic abdominal aneurysm and the fact that the patient was asymptomatic, recommended to monitor for now with outpatient follow up. Repeat ultrasound or CT scan in six months. Currently not a candidate for repair, but if aneurysm enlarges, it could be. Information discussed with the patient and family. The patient will have outpatient follow-up and if require repair, will be sent to cardiothoracic surgeon. Blood sugar was managed with sliding scale of insulin and remained stable. Hemoglobin A1c at goal- 5.8. Electrolytes and renal parameters were closely monitored. Nephrotoxics were avoided. Psychiatrist seen and evaluated the patient, diagnosed the patient with major depressive disorder, and started the patient on low dose of Lexapro. Patient was stable for discharge home. FINAL DIAGNOSES: 1. Acute encephalopathy. 2. Status post non-syncopal fall 3. Transient left lower extremity weakness, probably secondary to transient ischemic attack. 4. Chronic kidney disease. 5. Hypertension. 6. Diabetes mellitus. 7. Extensive cerebrovascular disease with multiple lacunar strokes. 8. Benign prostatic hypertrophy. 9. Aortic abdominal aneurysm. 10. Major depressive disorder. DISCHARGE MEDICATIONS: See medication reconciliation list. DISCHARGE INSTRUCTIONS: The patient was discharged home. Follow up with the primary care provider. Repeat ultrasound or CT admen/pelvis in 6 month Ronda Liu M.D. I have been assigned to dictate discharge summary on this account and I was not involved in the patient's management. Berkley PereiraNyu Langone Tisch Hospitalerrol N.PMaureen DR: HARINDER JOB#: [id number] CC: EDNA
--- NOTE | 2017-09-07 16:03 | Cardiology Report ---
APPROVED REPORT EKG Measurement Heart [id number] Normal sinus rhythm Normal ECG
== END 2017-09-02 17:22 | disposition home or self-care (01) | DRG 69 ==
LOC: EMR 15:45 → 2E 16:00 → EDBEDREQ 18:33 → 4W 08-31 16:44
DX: G45.9 Transient cerebral ischemic attack, unspecified (principal); G93.40 Encephalopathy, unspecified; N17.9 Acute kidney failure, unspecified; I12.9 Hypertensive chronic kidney disease with stage 1 through stage 4 chronic kidney disease, or unspecified chronic kidney disease; N18.9 Chronic kidney disease, unspecified; N40.0 Benign prostatic hyperplasia without lower urinary tract symptoms; I71.4 Abdominal aortic aneurysm, without rupture; R53.1 Weakness; E11.9 Type 2 diabetes mellitus without complications; Z86.73 Personal history of transient ischemic attack (TIA), and cerebral infarction without residual deficits; F32.9 Major depressive disorder, single episode, unspecified; Z79.02 Long term (current) use of antithrombotics/antiplatelets; J44.9 Chronic obstructive pulmonary disease, unspecified; Z91.81 History of falling; E78.5 Hyperlipidemia, unspecified; E11.22 Type 2 diabetes mellitus with diabetic chronic kidney disease; Z87.19 Personal history of other diseases of the digestive system
CPT/HCPCS: 36415; 70450; 71045; 76770; 80053; 80061; 81001; 81003; 82550; 82607; 82728; 82746; 82962; 83036; 83540; 83550; 83735; 83880; 84100; 84133; 84300; 84443; 84484; 84550; 85025; 85610; 85730; 86140; 89050; 93005; 93306; 93880; 94664; 99285; J1815